=== PATIENT | female | born 1950 | race Caucasian/White ===

== ENCOUNTER 2017-01-27 09:48 | Emergency (ER) | payer MEDICARE, BC ==
[2017-01-27 11:27] VITALS: BP 140/81
--- NOTE | 2017-01-27 14:22 | UC ---
Elizabeth Altamirano Alok, scribed for Maggie Castaneda DO on 01/27/17 at 1245 . Skin Complaint HPI - HPI Summary HPI Summary: 66 y/o female presents to the with a puncture wound of the right arm yesterday. Pt states that while gardening, a stalk of grass punctured through her right forearm and is now erythematous with edema and pain radiating to her shoulder. Her garden is decorative where no animals are present. Pt states she was able to remove the foreign body and has attempted to treat wound with hydrogen pyroxide and antibiotic cream. Pt states that her pain described as a throbbing is currently at a 6 out of 10 in severity and that nothing makes her pain better/worse. Pt denies any numbness, weakness, or tingling of the upper extremities. Pt also denies any fever, chills, SOB, nausea, or cough. PMHx includes asthma, borderline HTN and anxiety/depression. PSHx includes an operation on the same extremity following a dog bite 10 years ago, as well as a shot of cortisone in the thumb of the same extremity one week ago following a slip and fall. - History of Current Complaint Chief Complaint: Wounds Time Seen by Provider: 01/27/17 10:35 Stated Complaint: ARM WOUND/RED & WARM Hx Obtained From: Patient ?: No Onset/Duration: Gradual Onset, Lasting Days, Still Present Timing: Constant Onset Severity: Moderate Current Severity: Moderate Pain Intensity: 6 Pain Scale Used: 0-10 Numeric Location: Other - Right foreare Character: Swelling, Pain, Redness, Raised Aggravating: Nothing Alleviating: Nothing Associated Signs & Symptoms: Positive: Tenderness. Negative: Nausea, Numbness, Fever, Chills, Cough, Drainage, Red Streaks, Joint Swelling Related History: Foreign Body - Allergy/Home Medications Allergies/Adverse Reactions: Allergies Allergy/AdvReac Type Severity Reaction Status Date / Time Erythromycin Allergy Rash Verified 01/27/17 11:36 Home Medications: Home Medications Albuterol HFA INHALER* [Ventolin HFA Inhaler*] 2 puff INH QID PRN 01/27/17 [ History Confirmed 01/27/17] Hydrocodone 7.5/325 0.5 tab PO PRN 01/27/17 [History] Review of Systems Constitutional: Negative Skin: Other - Puncture wound x2 right foreare. Erythematous. Painful radiating to right shoulder. Eyes: Negative ENT: Negative Respiratory: Negative Cardiovascular: Negative Gastrointestinal: Negative Genitourinary: Negative Motor: Negative Neurovascular: Negative Musculoskeletal: Negative Neurological: Negative Psychological: Negative All Other Systems Reviewed And Are Negative: Yes PMH/Surg Hx/FS Hx/Imm Hx Endocrine History Of: Reports: Dyslipidemia Denies: Diabetes, Thyroid Disease Cardiovascular History Of: Reports: Hypertension - boarderline htn Denies: Cardiac Disorders Respiratory History Of: Reports: Asthma, Bronchitis - CHRONIC Denies: COPD GI/ History Of: Reports: Gastroesophageal Reflux Denies: Ulcer Psychological History Of: Reports: Anxiety - ON MEDS, Depression - Surgical History Surgical History: Yes Surgery Procedure, Year, and Place: HYSTERECTOMY. right hand surgery after dog bite - [facility]- 10 years ago - Family History Known Family History: Positive: Cardiac Disease, Hypertension - Social History Occupation: Employed Full-time Lives: With Family - , Daughter Alcohol Use: Weekly Alcohol Amount: 2 PER WEEK Substance Use Type: None Smoking Status (MU): Never Smoked Tobacco Have You Smoked in the Last Year: No - Immunization History Most Recent Influenza Vaccination: saeson Most Recent Tetanus Shot: February 18, 2016 Physical Exam Triage Information Reviewed: Yes Appearance: Well-Appearing, No Pain Distress, Well-Nourished Vital Signs: Initial Vital Signs Temp 98.9 F 01/27/17 11:18 Pulse 75 01/27/17 11:18 Resp 18 01/27/17 11:18 BP 140/81 01/27/17 11:18 Pulse Ox 96 01/27/17 11:18 Vital Signs Reviewed: Yes Eyes: Positive: Conjunctiva Clear. Negative: Discharge ENT: Positive: Hearing grossly normal. Negative: Muffled/hoarse voice Neck exam: Normal Neck: Positive: Supple Respiratory: Positive: Lungs clear, Normal breath sounds, No respiratory distress, No accessory muscle use Cardiovascular: Positive: RRR, No Murmur Musculoskeletal Exam: Normal Neurological: Positive: Alert, Muscle Tone Normal Psychological Exam: Normal Psychological: Positive: Age Appropriate Behavior Skin Exam: Other - punture entry and exit wound surrounded by 10 cm by 5 cm erythematous region on right forearm. no red streaks. no lad Course/Dx - Differential Diagnoses - Skin Complaint Differential Diagnoses: Abscess, Cellulitis, Other - Diagnoses Provider Diagnoses: punture wound, wound infection Discharge - Discharge Plan Condition: Stable Disposition: HOME Prescriptions: Cephalexin CAP* [Keflex CAP*] 500 mg PO BID #20 cap Patient Education Materials: Puncture Wound (ED), Wound Infection (ED) Referrals: Katharina Gonzalez MD [Primary Care Provider] - 2 Days (Follow up in 2 days for re- evaluation. This follow up visit is important, we want to know that you are improving. If you can not get in with your PCP, return here for re-evaluation. Follow up sooner if symptoms worsen or new symptoms develop.) Additional Instructions: CEPHALEXIN: The antibiotic you've been prescribed is a member of the cephalosporin class. This type of antibiotic covers a wide variety of infections, including those of the skin, lungs, and urinary tract. It's useful for staph infections. This antibiotic is slightly similar to the penicillin family. In rare cases , a person who is allergic to penicillin will also be allergic to this medication. If you have had a severe allergic reaction to penicillin, and have not taken this antibiotic since that time, notify your doctor. Antibiotics which cover many germs ("broad spectrum" antibiotics) are more likely to cause diarrhea or "yeast" infections. Women prone to vaginal yeast problems may suffer an attack after taking this antibiotic. In infants, oral thrush (white spots "stuck" on the cheek) or yeast diaper rash may result. See your doctor if these problems occur. Call at once if you develop itching, hives , shortness of breath, or lightheadedness. ANY TIME YOU TAKE AN ANTIBIOTIC, IT IS IMPORTANT TO REPLENISH THE BODY'S BALANCE OF "GOOD" BACTERIA BY EATING HIGH QUALITY CULTURED FOOD SUCH YOGURT, SAURKRAUT OR MAHI CHI AND/OR TAKING A PROBIOTIC SUPPLEMENT. The documentation as recorded by the Elizabeth singh Alok accurately reflects the service I personally performed and the decisions made by , Maggie Castaneda DO.
== END 2017-01-27 13:12 | disposition home or self-care (01) ==
LOC: UCEAST 09:48
DX: S51.831A Puncture wound without foreign body of right forearm, initial encounter (principal); L08.9 Local infection of the skin and subcutaneous tissue, unspecified; W45.8XXA Other foreign body or object entering through skin, initial encounter; Y93.9 Activity, unspecified; Y99.9 Unspecified external cause status; F41.8 Other specified anxiety disorders; E78.5 Hyperlipidemia, unspecified; R03.0 Elevated blood-pressure reading, without diagnosis of hypertension; J45.909 Unspecified asthma, uncomplicated; J42 Unspecified chronic bronchitis; Z88.1 Allergy status to other antibiotic agents
CPT/HCPCS: 99212; G0463

== ENCOUNTER 2018-07-10 14:16 | Observation (INO) | payer MEDICARE, BC ==
--- OUTSIDE RECORDS SUMMARY | 2018-07-10 15:15 | XMS REPORT | Continuity of Care Document ---
:1950 External Reference #:[id number] Author Name Jim Carreon, OD Address [address] [place] [address] Care Team Providers Name Role Phone Katharina Gonzalez MD Care Team Information Magento Web Developer Unavailable Carlos FERRER, Katharina Primary Care Physician Unavailable Payers Type Date Identification Numbers Payment Provider Subscriber Policy Number: [id number] Medicare [place] Szymanski PayID: [id number] [address] [place] [address] Policy Number: [id number] / CN [place] Queta Szymanski PayID: [id number] [address] [address] [place] [address] Advance Directives Description No Information Available Problems Date Description Provider Status Onset: 03/06/2015 Essential hypertension Diony Coe M.D. Active Onset: 09/06/2016 Contusion of eyeball and orbital Diony Coe M.D. Active tissues, left eye, subsequent encounter Onset: 03/06/2016 Tear film insufficiency Jim Cabrales O.D. Active Onset: 02/08/2016 Presence of intraocular lens Jim Cabrales O.D. Active Onset: 01/24/2016 Convalescence after surgery Diony Coe M.D. Active Onset: 03/06/2015 Vitreous degeneration Diony Coe M.D. Active Onset: 03/06/2015 Nuclear senile cataract Diony Coe M.D. Active Family History Date Family Member(s) Problem(s) Comments Father Heart Disease Father H/O: Hypertension Social History Type Date Description Comments Sex Unknown ETOH Use Occasionally consumes alcohol Tobacco Use Start: Unknown End: Unknown Patient is a former smoker Smoking Status Reviewed: 06/29/18 Patient is a former smoker Allergies, Adverse Reactions, Alerts Date Description Reaction Status Severity Comments 03/23/2018 Xiidra Active 03/06/2015 NKDA Inactive Medications Medication Date Status Form Strength Qnty SIG Indications Ordering Provider Fluorometholone 03/23/ Active Suspension 0.1% 10ml 1g2017 qd OU Lauri, OD Amlodipine 00/ Active Tablets 5mg Unknown Besylate 0000 Hydrocodone-Aceta / Active Tablets 7.5-325mg Unknown minophen 0000 Prozac / Active Capsules 80mg Unknown 0000 Wellbutrin XL / Active Tablets ER 150mg Unknown 0000 24HR Alprazolam / Active Tablets 0.5mg Unknown 0000 Atorvastatin / Active Tablets 10mg Unknown Calcium 0000 Losartan / Active Tablets 100-25mg Unknown Potassium/Hydroch 0000 lorothiazide Ventolin HFA / Active Aerosol 108(90Base Unknown 0000 ) mcg/Act Lansoprazole / Active Capsules DR 30mg Unknown 0000 Dulera / Active Aerosol 100-5mcg/A [address] twice a day Xiidra 02/27/ Hx Solution 5% 60unit 1g Jim 2017 - s both Carreon, 03/23/ eyes OD 2018 twice a day Fluorometholone 12/18/ [facility] OS Lauri, 02/27/ x 1 OD 2018 week, then tid x 1 week Tobramycin-Dexame 12/12/ Hx Suspension 0.3-0.1% 5ml 1 drop Jim day 2018 - tid Ou Lauri, 12/18/ x 1 OD 2018 week Vigamox 01/10/ Hx Solution 0.5% 3ml 1 drop Diony 2016 - drops Saravanan, 02/05/ right M.D. 2016 eye four times a day Ketorolac 01/10/ Hx Solution 0.5% 10ml 1 Diony Tromethamine 2015 - drops Saravanan, 03/06/ right M.D. 2016 eye twice a day Pred Forte 01/10/ Hx Suspension 1% 10ml 1 Diony 2016 - drops Saravanan, 03/06/ right M.D. 2016 eye four times a day Immunizations Description No Information Available Vital Signs Date Vital Result Comment 06/29/2018 12:23pm Intraocular Pressure Right Eye 17 mmHg Intraocular Pressure Left Eye 17 mmHg 03/23/2018 9:22am Intraocular Pressure Right Eye 16 mmHg Intraocular Pressure Left Eye 16 mmHg 02/27/2018 8:32am Intraocular Pressure Right Eye 17 mmHg Intraocular Pressure Left Eye 17 mmHg 01/28/2018 10:10am Intraocular Pressure Right Eye 15 mmHg Intraocular Pressure Left Eye 15 mmHg 12/25/2017 9:45am Intraocular Pressure Right Eye 15 mmHg Intraocular Pressure Left Eye 15 mmHg 12/18/2017 9:13am Intraocular Pressure Right Eye 16 mmHg Intraocular Pressure Left Eye 16 mmHg 12/12/2017 11:18am Intraocular Pressure Right Eye 16 mmHg Intraocular Pressure Left Eye 16 mmHg 09/06/2016 8:17am Intraocular Pressure Right Eye 17 mmHg Intraocular Pressure Left Eye 17 mmHg 03/06/2016 8:56am Intraocular Pressure Right Eye 12 mmHg Intraocular Pressure Left Eye 12 mmHg 01/31/2016 8:28am Intraocular Pressure Right Eye 17 mmHg Intraocular Pressure Left Eye 17 mmHg 01/24/2016 9:34am Intraocular Pressure Right Eye 16 mmHg Intraocular Pressure Left Eye 17 mmHg 01/11/2016 10:35am Intraocular Pressure Right Eye 16 mmHg Intraocular Pressure Left Eye 17 mmHg 03/06/2015 8:51am Intraocular Pressure Right Eye 16 mmHg Intraocular Pressure Left Eye 17 mmHg Results Description No Information Available Procedures Date Code Description Status 12/12/2017 11171 Eye Exam Est Intermediate Completed 09/06/2016 55849 Ophthalmoscopy Subsequent Completed 09/06/2016 91467 Eye Exam Est Comprehensive Completed 08/23/2016 00240 Ophthalmoscopy Subsequent Completed 08/23/2016 43718 Eye Exam Est Intermediate Completed 01/30/2016 36544 Extracapsular Cataract Extraction W/Intraocular Lens Completed 01/23/2016 58059 Extracapsular Cataract Extraction W/Intraocular Lens Completed 01/11/2016 99439 Ophthalmic Biometry By Partial Coherence Interferometry Completed W/Intra 01/11/2016 15348 Eye Exam Est Intermediate Completed 03/06/2015 27053 Ophthalmoscopy Initial Completed 03/06/2015 71163 Refraction Completed 03/06/2015 43510 Eye Exam Est Comprehensive Completed 01/01/2012 30351 Ophthalmoscopy Subsequent Completed 01/01/2012 40445 Eye Exam Est Intermediate Completed 12/12/2011 74815 Ophthalmoscopy Initial Completed 12/12/2011 32318 Eye Exam New Comprehensive Completed Encounters Type Date Location Provider Dx Diagnosis Office Visit 06/29/2018 Main Office Jim Carreon, OD H04.123 Dry eye syndrome of 11:30a bilateral lacrimal glands Office Visit 03/23/2018 Main Office Jim Carreon, OD H04.123 Dry eye syndrome of 9:15a bilateral lacrimal glands 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, left eye Office Visit 02/27/2018 8:15a Main Office Jim Carreon, H04.123 Dry eye syndrome of OD bilateral lacrimal glands Office Visit 01/28/2018 9:45a Main Office Jim Carreon, H16.223 Keratoconjunct sicca, OD not specified as Sjogren's, bilateral Office Visit 12/25/2017 8:30a Main Office Jim Carreon, H04.123 Dry eye syndrome of OD bilateral lacrimal glands 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
--- NOTE | 2018-07-10 15:18 | ED ---
Allergic Reaction/Systemic - HPI Summary HPI Summary: A 67 y/o F presents to ED by car with c/o throat closing which mostly resolved onset RECONCILEMENT CLERK Per her daughter, that after lunch, her mother was suddenly red in the face and giving the choking sign. The pt tried to use her inhaler but it was coming it out from her cheeks, so they called 911. Eventually, she was able to get some into her lungs. They did not use the epi-pen RECONCILEMENT CLERK. EMS arrived on scene and they gave her Benadryl. Associated sx: hoarseness, difficulty breathing. 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 PMHx: borderline HTN. Sees Dr. Gonzalez, PCP. - History of Current Complaint Chief Complaint: EDAllergicReaction Time Seen by Provider: 07/10/18 15:16 Hx Obtained From: Patient, Family/Zigzagger - daughter Onset/Duration: Sudden Onset, Started hours ago, Still Present - milder Timing: Constant Severity Initially: Severe Severity Currently: Mild Pain Intensity: 3 Pain Scale Used: 0-10 Numeric Location: Discrete @ - throat Associated Signs And Symptoms: Positive: Difficulty Breathing, Hoarseness, Throat Tightening - Allergies/Home Medications Allergies/Adverse Reactions: Allergies Allergy/AdvReac Type Severity Reaction Status Date / Time erythromycin base Allergy Rash Verified 07/10/18 14:46 mold Allergy Shortness Verified 07/10/18 17:35 of Breath pollen extracts Allergy Shortness Verified 07/10/18 17:35 of Breath soy Allergy GI Upset Verified 07/10/18 14:46 tree and shrub pollen Allergy Shortness Verified 07/10/18 17:35 of Breath cats Allergy Difficulty Uncoded 07/10/18 14:46 Breathing Home Medications: Home Medications Fluoxetine HCl [Prozac] 80 mg PO DAILY 07/10/18 [History Confirmed 07/10/18] Lisdexamfetamine Dimesylate [Vyvanse] 50 mg PO DAILY 07/10/18 [History Confirmed 07/10/18] Montelukast Sodium TAB* [Singulair TAB*] 10 mg PO DAILY 07/10/18 [History Confirmed 07/10/18] PMH/Surg Hx/FS Hx/Imm Hx Previously Healthy: No Endocrine/Hematology History: Denies: Hx Diabetes, Hx Thyroid Disease Cardiovascular History: Reports: Hx Hypertension - boarderline htn Denies: Other Cardiovascular Problems/Disorders Respiratory History: Reports: Hx Asthma Denies: Hx Chronic Obstructive Pulmonary Disease (COPD) GI History: Reports: Hx Gastroesophageal Reflux Disease, Hx Hiatal Hernia Denies: Hx Ulcer, Other GI Disorders Musculoskeletal History: Reports: Hx Arthritis - MOST JOINTS ALL OVER, Hx Tendonitis Denies: Other Musculoskeletal History Sensory History: Reports: Hx Cataracts - KEMI, Hx Contacts or Glasses - GLASSES Denies: Hx Hearing Aid Opthamlomology History: Reports: Hx Cataracts - KEMI, Hx Contacts or Glasses - GLASSES Neurological History: Denies: Other Neuro Impairments/Disorders Psychiatric History: Reports: Hx Anxiety - ON MEDS, Hx Depression - Surgical History Surgery Procedure, Year, and Place: HYSTERECTOMY. right hand surgery after dog bite - [facility]- 10 years ago Hx Anesthesia Reactions: Yes - EASILY WAKES UP DURING SURGERY Infectious Disease History: No Infectious Disease History: Reports: Hx Shingles - "a few times." Denies: Hx Clostridium Difficile, Hx Hepatitis, Hx Human Immunodeficiency Virus (HIV), Hx of Known/Suspected MRSA, Hx Tuberculosis, Hx Known/Suspected VRE , Hx Known/Suspected VRSA, History Other Infectious Disease, Traveled Outside the [place] in Last 30 Days - Family History Known Family History: Positive: Cardiac Disease, Hypertension - Social History Occupation: Employed Full-time Lives: With Family Alcohol Use: Weekly Alcohol Amount: 2 PER WEEK Hx Substance Use: No Substance Use Type: Reports: None Hx Tobacco Use: No Smoking Status (MU): Never Smoked Tobacco Have You Smoked in the Last Year: No Review of Systems Negative: Fever, Chills Negative: Erythema Positive: Other - pos: throat tightening, hoarseness. Negative: Sore Throat Negative: Chest Pain Positive: Other - pos: dyspnea. Negative: Shortness Of Breath, Cough Negative: Abdominal Pain, Vomiting, Nausea Negative: dysuria, hematuria Negative: Myalgia, Edema Negative: Rash Neurological: Other - neg: dizziness All Other Systems Reviewed And Are Negative: Yes Physical Exam - Summary Physical Exam Summary: Constitutional: Well-developed, Well-nourished, Alert. (-) Distressed. Increased hoarseness. Skin: Warm, Dry HENT: Normocephalic; Atraumatic. Increased hoarseness. Eyes: Conjunctiva normal Neck: Musculoskeletal ROM normal neck. (-) JVD, (-) Stridor, (-) Tracheal deviation Cardio: Rhythm regular, rate normal, Heart sounds normal; Intact distal pulses; The pedal pulses are 2+ and symmetric. Radial pulses are 2+ and symmetric. (-) Murmur Pulmonary/Chest wall: Effort normal. (-) Respiratory distress, (-) Wheezes, (-) Rales Abd: Soft, (-) epigastric tenderness, (-) Distension, (-) Guarding, (-) Rebound Musculoskeletal: (-) Edema Lymph: (-) Cervical adenopathy Neuro: Alert, Oriented x3 Psych: Mood and affect Normal Triage Information Reviewed: Yes Vital Signs On Initial Exam: Initial Vitals Temp Pulse Resp BP Pulse Ox 97.7 F 73 19 135/76 96 07/10/18 14:46 07/10/18 14:46 07/10/18 14:46 07/10/18 14:46 07/10/18 14:46 Vital Signs Reviewed: Yes Diagnostics - Vital Signs Vital Signs Temp Pulse Resp BP Pulse Ox 07/10/18 14:46 97.7 F 73 19 135/76 96 - Laboratory Result Diagrams: 07/10/18 16:35 07/10/18 16:35 Lab Statement: Any lab studies that have been ordered have been reviewed, and results considered in the medical decision making process. Allergic Reaction Course/Dx - Diagnoses Provider Diagnoses: Acute anaphylaxis - Provider Notifications Discussed Care Of Patient With: Mckay Soto - hospitalist Time Discussed With Above Provider: 16:52 Instructed by Provider To: Other - Will admit. Also discussed with zainab Martinezist PA. Discharge - Sign-Out/Discharge Documenting (check all that apply): Patient Departure - ADM - Discharge Plan Disposition: ADMITTED TO [facility] - Attestation Statements Document Initiated by Scribe: Yes Documenting Scribe: Traci Graham Provider For Whom Scribe is Documenting (Include Credential): Dr. Jose Miguel German Scribe Attestation: I, Traci Graham, scribed for Dr. Jose Miguel German on 07/10/18 at 1904.
[2018-07-10] MEDS ORDERED: diPHENhydraMINE IV* 50 MG/ML 1 ml VIAL (BENADRYL) SLOW PUSH ONE (16:28)
[2018-07-10] MEDS ORDERED: methylPREDNISolone 125 MG* 2 ML VIAL IV ONE (16:28)
[2018-07-10] MEDS ORDERED: Famotidine IV* 10 MG/ML 2 ML (20 mg) IV SLOW PU ONE (16:28)
[2018-07-10] MEDS ORDERED: NS 0.9% 1000 ML* 1,000 ML IV ONE (16:29)
[2018-07-10 16:45] LABS: Hematocrit 38 % (35-47); Hemoglobin 13.3 g/dl (12.0-16.0); Mean Corpuscular HGB Conc 35 g/dl (31-36); Mean Corpuscular Hemoglobin 33 pg (27-31); Mean Corpuscular Volume 97 fL (80-97); Mean Platelet Volume 6.6 um3 (7.4-10.4); Platelet Count 287 10^3/ul (150-450); Red Blood Count 3.97 10^6/ul (4.00-5.40); Red Cell Distribution Width 14 % (10.5-15); White Blood Count 6.8 10^3/ul (3.5-10.8)
[2018-07-10 17:04] LABS: EGFR Non-African American 109.6 (>60)
[2018-07-10] MEDS ORDERED: Acetaminophen TAB* 325 MG PO PRN (17:18)
[2018-07-10] MEDS ORDERED: Albuterol 2.5 MG/3 ML NEB.SOL* (0.083%) INH PRN (17:18)
[2018-07-10] MEDS ORDERED: Ondansetron INJ* 2 MG/ML VIAL IV PRN (17:18)
[2018-07-10] MEDS ORDERED: Al Hydrox/Mg Hydrox/Simet LIQ* 30 ML UDC PO PRN (17:18)
[2018-07-10] MEDS ORDERED: diPHENhydraMINE PO* 25 MG PO PRN (17:24)
[2018-07-10] MEDS ORDERED: NS 0.9% 1000 ML* 1,000 ML IV SCH (17:30)
[2018-07-10] MEDS ORDERED: diPHENhydraMINE IV* 50 MG/ML 1 ml VIAL (BENADRYL) IV PRN (17:44)
[2018-07-10] MEDS ORDERED: Simethicone TAB* 80 MG TAB.CHEW PO PRN (17:49)
[2018-07-10] MEDS ORDERED: Hydrochlorothiazide TAB* 25 MG PO SCH (18:00)
[2018-07-10] MEDS ORDERED: Losartan TAB* 25 MG PO SCH (18:00)
[2018-07-10] MEDS ORDERED: Enoxaparin(*) 40 MG/0.4 ML SYR SUBCUT SCH (18:00)
[2018-07-10] MEDS: Mometasone/Formoter 100/5 MDI INH SCH (20:02)
--- NOTE | 2018-07-10 22:51 | HP ---
CC: Dr. Katharina Gonzalez * HISTORY AND PHYSICAL: DATE OF ADMISSION: 07/10/18 PRIMARY CARE PROVIDER: Dr. Katharina Gonzalez. ATTENDING PHYSICIAN: Dr. Mckay Soto * (dictated by Michelle Sandoval NP). CHIEF COMPLAINT: Allergic reaction. HISTORY OF PRESENT ILLNESS: Ms. Szymanski is a 67-year-old female with a past medical history of hypertension, asthma, anxiety, depression, who presented to the emergency room today with complaints of an allergic reaction. She reports that she was in her normal state of health this morning. She was at work, eating lunch, which consisted of Nepali fried rice with chicken and vegetables. During her lunch, she also hugged a coworker, who has cats. She reports that her throat then began to close. She felt as though she could not breathe. She thinks this went on for about 1 minute. This episode was witnessed by her daughter, who reports that her face was red during the incident and that she was getting very little air and she attempted to use her albuterol inhaler, but was not able to actually inhale the medication. EMS was called. Upon EMS arrival, the patient had just taken 50 mg of Benadryl and declined to have EMS bring her to the emergency room. She instead had her daughter drive her to the emergency room. During the car ride here, she did feel as though her throat was closing again, although she was still able to breathe at that point. Additionally, again in the waiting room, she felt as though her throat was closing, although not to be extent that it had been earlier during lunch. She does have a significant number of asthma triggers. She states that she has had 2 prior episodes similar to this, where she felt as though she felt like her throat was closing and was not able to breathe, the last one being about a year and a half ago. While in the emergency room, the patient was given Benadryl, famotidine, Solu- Medrol, and IV fluids. She did have some difficulty swallowing initially though this is now improved. She does continue to report a sore throat and a raspy voice. Because of the concern for a biphasic reaction, the hospitalist team was asked to evaluate for admission. PAST MEDICAL HISTORY: 1. Asthma. 2. Hypertension. 3. Anxiety. 4. Depression. 5. Shingles. PAST SURGICAL HISTORY: 1. Hysterectomy. 2. Right hand surgery. 3. Sinus surgery. HOME MEDICATIONS: 1. Vyvanse 50 mg p.o. daily. 2. Singulair 10 mg p.o. daily. 3. Fluoxetine 80 mg p.o. daily. 4. Albuterol MDI 2 puffs four times a day p.r.n. 5. Acyclovir 200 mg p.o. b.i.d. p.r.n. 6. Folic acid 400 mcg p.o. daily. 7. Vitamin D 2000 units p.o. daily. 8. Lipitor 10 mg p.o. daily. 9. Aspirin 325 mg p.o. daily. 10. Dulera 100/5 two puffs b.i.d. 11. Losartan/hydrochlorothiazide 100/25 one tab p.o. daily. 12. Lansoprazole 30 mg p.o. b.i.d. 13. Bupropion 300 mg p.o. daily. 14. Amlodipine 2.5 mg p.o. daily. ALLERGIES: ERYTHROMYCIN, MOLD, POLLEN, SOY, TREES, and CATS. FAMILY HISTORY: Mother at age 65 of a cerebral hemorrhage. Father at age 60 due to an CO. SOCIAL HISTORY: Denies any tobacco or recreational drug use. Reports 1 glass of wine per day. 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 She is and lives at home with her . The patient's daughter, Ritu, will be her surrogate decision in the event she is unable to make her own decisions. REVIEW OF SYSTEMS: An 11-point review of systems was performed and all the pertinent positive and negative findings are in the HPI. All other systems are negative. PHYSICAL EXAMINATION GENERAL: Ms. Szymanski is a well-developed, well-nourished, overweight, white woman sitting in bed, in no acute distress. She appears her stated age. VITAL SIGNS: Temp 97.7, heart rate 64, respiratory rate 19, oxygen saturation 97% on 2 L nasal cannula, blood pressure 135/75. HEENT: Visual rose are grossly intact. Pupils are equal, round, and reactive to light and accommodation. Extraocular movements intact. Sclerae without icterus. Hearing is grossly intact. Oral mucous membranes are moist and without lesions. Pharynx is clear. NECK: Full range of motion. Thyroid not palpable. Trachea midline. No lymphadenopathy. RESPIRATORY: Symmetrical chest expansion. No chest wall deformities. Lungs are clear to auscultation throughout. No rhonchi, wheezes, or rubs. No accessory muscle use. CARDIOVASCULAR: Regular rate and rhythm. S1, S2 present. No murmurs, rubs, or gallops. No JVD. ABDOMEN: Soft, nontender to palpation. Bowel sounds normoactive active throughout. No bruits appreciated. No hepatosplenomegaly. EXTREMITIES: Skin is warm and smooth bilaterally. No edema. No clubbing or cyanosis. Pedal pulses 2+ bilaterally. MUSCULOSKELETAL: Full range of motion. No pain or deformities. NEURO: Awake, alert, and oriented x4. Cranial nerves II through XII grossly intact. Moves all extremities. SKIN: Grossly intact without lesions. LABORATORY DATA: WBC 6.8, RBC 3.97, hemoglobin 13.3, hematocrit 38, and platelets 287. Sodium 132, potassium 3.6, chloride 102, carbon dioxide 26, BUN 13, creatinine 0.55, glucose 117. ASSESSMENT AND PLAN: Ms. Szymanski is a 67-year-old female with a past medical history of asthma, hypertension, anxiety, and depression, who presented to the emergency room today with complaints of an allergic reaction. The patient will be admitted to the medical floor, observation for: 1. Allergic reaction. There is concern for a biphasic reaction, so she will be monitored overnight. The patient is stable at this time and is not displaying any significant symptoms, so I am not concerned about her losing her airway. I will order Benadryl as needed and Solu-Medrol 40 mg IV q.8 hours. I will also order her 1 L of fluid. She will be monitored on telemetry overnight. 2. Asthma. She can have albuterol nebulizers as needed. She can continue her Dulera and Singulair. 3. Hypertension. She is normotensive at this point. She can continue her amlodipine, hydrochlorothiazide, losartan. 4. Anxiety and depression. She can continue her bupropion and fluoxetine. 5. Fluids, electrolytes, and nutrition. As I noted above, the patient will get 1 L of normal saline in addition to what she received in the emergency room. She can have a regular diet. 6. Code status. The patient will be a full code. 7. DVT prophylaxis. Based on the DVT risk assessment, the patient scores a 3 making her high risk. I have placed her on Lovenox. TIME SPENT: Approximately 50 minutes was spent on this admission, greater than half of that time spent with the patient and her daughter obtaining my history, performing my physical examination, and reviewing the plan of care. The case has been reviewed with my attending, Dr. Soto, who is in agreement with the plan of care. MICHELLE SANDOVAL, LICENSED MARINE ENGINEER [id number]/CPS #: [id number] RUT
[2018-07-10] MEDS: Omeprazole CAP* 20 MG PO SCH (23:38)
[2018-07-11] MEDS: methylPREDNISolone SOD 40 MG* 1 ML VIAL IV SCH ×3 (03:51→08:17)
[2018-07-11 06:55] LABS: ABS Basophils 0 10^3/ul (0-0.2); ABS Eosinophils 0 10^3/ul (0-0.6); ABS Lymphocytes 0.4 10^3/ul (1.0-4.8); ABS Monocytes 0 10^3/ul (0-0.8); ABS Neutrophils 4.8 10^3/ul (1.5-7.7); ABS Nucleated RBC 0 10^3/ul; Eosinophil % 0 % (0-6); Hematocrit 37 % (35-47); Hemoglobin 12.8 g/dl (12.0-16.0); Lymphocyte % 8.4 % (25-47); Mean Corpuscular HGB Conc 35 g/dl (31-36); Mean Corpuscular Hemoglobin 34 pg (27-31); Mean Corpuscular Volume 97 fL (80-97); Mean Platelet Volume 7.1 um3 (7.4-10.4); Nucleated Red Blood Cells % 0; Platelet Count 286 10^3/ul (150-450); Red Cell Distribution Width 13 % (10.5-15); White Blood Count 5.3 10^3/ul (3.5-10.8)
[2018-07-11 07:05] LABS: EGFR Non-African American 141.8 (>60)
[2018-07-11] MEDS: Mometasone/Formoter 100/5 MDI INH SCH (07:33)
[2018-07-11 07:36] VITALS: BP 139/72
[2018-07-11] MEDS: Omeprazole CAP* 20 MG PO SCH (08:10)
[2018-07-11] MEDS ORDERED: FLUoxetine CAP* 20 MG PO SCH (09:00)
[2018-07-11] MEDS ORDERED: buPROPion SR TAB.SR* 150 MG PO SCH (09:00)
[2018-07-11] MEDS ORDERED: amLODIPine TAB* 5 MG PO SCH (09:00)
[2018-07-11] MEDS ORDERED: Cholecalciferol TAB* 1000 UNITS PO SCH (09:00)
[2018-07-11] MEDS ORDERED: Aspirin TAB* 325 MG PO SCH (09:00)
[2018-07-11] MEDS ORDERED: Montelukast Sodium TAB* 10 MG PO SCH (09:00)
[2018-07-11] MEDS ORDERED: Folic Acid TAB* 1 MG PO SCH (09:00)
--- NOTE | 2018-07-11 12:55 | DCNOTE ---
Discharge Progress Note Primary Diagnosis: anaphylaxis, related to cat hair, food Secondary Diagnoses: asthma, allergic type Hypertension anxiety depression h/o meghan Consultants: none Procedures: none Complications: none Pertinent Lab/Radiology testing: Laboratory Tests 07/10/18 07/11/18 07/11/18 16:35 06:30 06:30 WBC 5.3 Hgb 12.8 Plt Count 286 Sodium 132 L 137 Glucose 145 H Tests pending upon discharge: none Physical exam: Selected Entries 07/11/18 07:22 Temperature 36.8 C Pulse Rate 63 Respiratory 18 Rate Blood Pressure 139/72 (mmHg) O2 Sat by Pulse 95 Oximetry No acute distress Trachea midline, no stridor Lungs: clear Heart; RRR, no murmur
[2018-07-11] MEDS ORDERED: Atorvastatin* 10 MG TAB PO SCH (17:00)
--- NOTE | 2018-07-12 06:22 | DS ---
CC: Dr. Gonzalez; Dr. Ramos Miranda * DISCHARGE SUMMARY: DATE OF ADMISSION: 07/10/18 DATE OF DISCHARGE: 07/11/18 PRIMARY DIAGNOSES: Anaphylaxis potentially related to cat hair or food. SECONDARY DIAGNOSES: 1. Asthma, allergic type with acute exacerbation. 2. Hypertension. 3. Anxiety. 4. Depression. 5. History of shingles. MEDICATIONS ON DISCHARGE: 1. Acyclovir 400 mg p.o. b.i.d. 2. Albuterol inhaler 2 puffs 4 times a day p.r.n. wheezing. 3. Norvasc 2.5 mg p.o. daily. 4. Aspirin 325 mg p.o. daily. 5. Lipitor 10 mg p.o. q.h.s. 6. Wellbutrin SR 300 mg p.o. q.a.m. 7. Vitamin D 2000 IU daily. 8. Prozac 80 mg p.o. daily. 9. Folic acid 400 mcg p.o. daily. 10. Prevacid 30 mg p.o. b.i.d. 11. Lisdexamfetamine 50 mg p.o. daily. 12. Losartan/HCTZ 100/25 one tab p.o. q.a.m. 13. Mometasone/formoterol 100/5 two inhalations b.i.d. 14. Montelukast 10 mg p.o. daily. 15. Albuterol nebulizer as needed. 16. Benadryl as needed. 17. Medrol Dosepak tapered as directed, which is the only new medications on this hospital stay. 18. EpiPen subcu as directed. HOSPITAL COURSE: The patient was admitted from her work place where she had an acute episode of wheezing and a sensation of throat closing without any tongue or lip swelling or hypertension. She was treated with Benadryl and fluids and did not receive epinephrine in the field or in the ER. She was observed overnight, given the concern of anaphylaxis. She was given IV Solu-Medrol in the ER and this was continued as inpatient. The patient's symptoms largely resolved and she felt safe to go home next day. She is advised to followup with her primary care doctor as well with Dr. Ramos [facility] to discuss whether this is an acute asthma attack versus anaphylaxis. She does have an EpiPen at home. DISPOSITION: Home. ACTIVITY: As tolerated. DIET: Low salt. She is to see her primary care doctor within a week. [id number]/CPS #: [id number] RUT
== END 2018-07-11 14:00 | disposition home or self-care (01) ==
LOC: ED 14:16 → MED 17:42
PROVIDERS: ADMIT Internal Medicine; ATTEND Internal Medicine
DX: T78.2XXA Anaphylactic shock, unspecified, initial encounter (principal); X58.XXXA Exposure to other specified factors, initial encounter; J45.909 Unspecified asthma, uncomplicated; I10 Essential (primary) hypertension; F41.9 Anxiety disorder, unspecified; F32.9 Major depressive disorder, single episode, unspecified; Z79.899 Other long term (current) drug therapy; Z88.1 Allergy status to other antibiotic agents
CPT/HCPCS: 36415; 80048; 80053; 85025; 85027; 94640; 96372; 96374; 96375; 96376; 99283; A9270-GY; G0378; J1200; J1650; J2920; J2930

== ENCOUNTER 2019-04-16 14:17 | Emergency (ER) | payer MEDICARE, BC ==
--- OUTSIDE RECORDS SUMMARY | 2019-04-16 14:47 | XMS REPORT | Continuity of Care Document ---
:1950 External Reference #:[id number] Author Name WalkerKyawRahel Care Team Providers Name Role Phone Katharina Gonzalez MD Primary Care Physician Unavailable Payers Date Identification Numbers Payment Provider Subscriber Effective: 2013 Policy Number: [id number] Medicare Queta Szymanski PayID: [id number] [address] [place] [address] Effective: 2015 Policy Number: [id number] BS [employer]ets Queta Szymanski PayID: [id number] [address] [place] [address] Effective: 2010 Policy Number: [id number] BS Of [facility] Queta Szymanski Expires: 2011 Group Number: [id number] [address] PayID: [id number] [place] [address] Problems Active Problems Provider Date Dyspnea Pop Nowak M.D. Onset: 02/10/2012 Benign essential hypertension Pop Nowak M.D. Onset: 02/10/2012 Hyperlipidemia Pop Nowak M.D. Onset: 02/10/2012 Mitral valve disorder Pop Nowak M.D. Onset: 02/10/2012 Electrocardiogram abnormal Pop Nowak M.D. Onset: 02/10/2012 Chest pain Pop Nowak M.D. Onset: 12/06/2013 Chronic pain syndrome Marcus Braxton M.D. Onset: 04/03/2015 Sjogren's syndrome Marcus Braxton M.D. Onset: 04/03/2015 Degenerative joint disease involving Marcus Braxton M.D. Onset: 04/03/2015 multiple joints Essential hypertension Pop Nowak M.D. Onset: 08/16/2015 Shoulder joint pain Rick Saravia MD Onset: 04/06/2019 Full thickness rotator cuff tear Rick Saravia MD Onset: 03/11/2019 Family History Date Family Member(s) Observation Comments General Heart Disease General Hypertension General Stroke General Rheumatoid Arthritis : (age 62 Father due to SD first SD at age 61 Years) : (age 65 Mother due to Cerebral hemorrhage Years) Siblings 2 Social History Type Date Description Comments Sex Unknown Marital Status Lives With Spouse Occupation Head Mistress ETOH Use Occasionally consumes alcohol Tobacco Use Start: Unknown Patient has never smoked Recreational Drug Use Denies Drug Use Smoking Status Reviewed: 04/06/19 Patient has never smoked Exercise Type/Frequency Exercises regularly Allergies, Adverse Reactions, Alerts Active Allergies Reaction Severity Comments Date Erythromycin rash 02/26/2007 Lyrica facial swelling Severe 04/03/2015 Cymbalta bowels seized up Moderate 04/03/2015 Bactrim shortness of breath/hives 01/19/2019 Medications Active Medications SIG Qnty Indications Ordering Date Provider Lipitor 1 po qhs 90tabs Arleeneh S. 08/23/2009 10mg Tablets Geremias Nowak Aspirin 1 PO qd Pop S. 06/26/2007 325mg Tablets Geremias Nowak Singulair One qd At hs 30tabs Edvinybsarahi S. 02/19/2007 10mg Tablets Geremias Nowak Benzonatate Take One Capsule Unknown 100mg Capsules By Mouth Three Times A Day as Needed For 10 Days Breo Ellipta Inhale 1 puff By Unknown 200-25mcg/Inh Mouth Daily Aerosol Rinse Mouth After Use Folic Acid 1 tablet by mouth Unknown 400mcg Tablets daily Valtrex 1 by mouth every Unknown 500mg Tablets day Ventolin HFA 2 puffs by mouth Unknown 108(90Base) four times a day mcg/Act Aerosol as needed Losartan 1 by mouth every Unknown Potassium/Hydrochloroth day iazide 100-25mg Tablets Albuterol Sulfate 1 vial via Unknown nebulizer 4 times (2.5mg/3ML) 0.083% daily as needed Nebulizer Levocetirizine 1 by mouth every Unknown Dihydrochloride day in the 5mg Tablets evening Dulara 2 puffs twice Other Ordering daily Provider Wellbutrin XL 1 by mouth daily Unknown 300mg Tablets ER 24HR Prozac 2 by mouth every Unknown 40mg Capsules day Prevacid 2 tabs daily Unknown 30mg Capsules DR Amlodipine Besylate 1 po qd 30tabs Unknown 5mg Tablets Vit D qd Unknown 2000U History Medications Ropinirole HCL 1 an hour before 60tabs 338.4 Marcus Braxton, 04/03/2015 - 0.25mg at bedtime x 1 M.D. 08/15/2015 Tablets week, then 1 bid Advair Diskus 1 puff po bid 60units Other Ordering 10/20/2013 - Provider 08/15/2015 250-50mcg/Dose Aerosol Percocet 1/2 to [address] Bob M.D. 09/06/2013 - 5-325mg prn pain (not 10/25/2015 Tablets taking) Wellbutrin SR 2 po qam, [facility] 08/23/2009 - 150mg the afternoon Geremias Nowak 08/15/2015 Tablets ER 12HR Hydrocodone 1-2 tabs prn Pop S. 08/23/2009 - 500mg Geremias Nowak 01/04/2011 Prozac 2 PO qd 30caps Pop S. 01/13/2008 - 30mg Capsules Geremias Nowak 02/10/2012 Nasonex 2 Sprays Both Floritaybsarahi S. 01/13/2008 - 50mcg/Act Nostrils prn Geremias Nowka 08/23/2009 Suspension Folic Acid 1N PO qd Pop S. 06/26/2007 - 400mcg Geremias Nowak 04/07/2017 Tablets Alprazolam one qd prn Pop STahir 02/26/2007 - 0.5mg Geremias Nowak 10/25/2015 Tablets Dexedrine one qd Pop STahir 02/26/2007 - 10mg Caps Geremias Nowak 02/10/2012 ER 24HR Lexapro 1 PO qd Floritamane S. 02/26/2007 - 20mg Tablets Geremias Nowak 01/13/2008 Wellbutrin XL 2 in am 1 at 1200 Pop S. 02/26/2007 - 150mg Geremias Nowak 08/23/2009 Tablets ER 24HR Valtrex one bid Pop STahir 02/26/2007 - 500mg Tablets Geremias Nowak 06/26/2007 Nasonex 2 sprays both tasarahi S. 02/19/2007 - 50mcg/Act nostrils qd Geremias Nowak 01/13/2008 Suspension Prevacid 1 PO qd Pop S. 02/19/2007 - 30mg Geremias Nowak 02/10/[address] Tamayo 1 tablet po q 6 Qutaybsarahi S. 02/19/2007 - 800mg hrs prn Geremias Nowak 02/26/2007 Tablets Gabapentin 1 po qd Floritamane S. 02/19/2007 - 300mg Geremias Nowak 02/26/2007 Tablets Vicodin 1-2 Tablets Q4H 40tabs Floritamane S. 02/19/2007 - 7.5mg/325mg prasha Nowak M.D. 02/26/2007 Tablets Pravachol 1 Tablet PO QHS 30tabs Pop S. 02/19/2007 - 40mg Geremias Nowak 01/13/2008 Tablets Advair Diskus 1 puff bid Pop S. 02/19/2007 - 250/50 Geremias Nowak 02/10/2012 Misc Levaquin 1 PO qd 30tabs Pop S. 02/19/2007 - 500mg Geremias Nowak 06/26/2007 Tablets Valium 1 tablet po q 6 4tabs Qutaybsarahi S. 02/19/2007 - 5mg Tablets hrs prn Geremias Nowak 02/26/2007 Restasis Multidose 1 gtts each eye Unknown - bid 04/27/2018 0.05% Emulsion Claritin 1 tab daily as Unknown - 10mg needed 01/18/2019 Capsules Acyclovir 2 by mouth 2 Unknown - 200mg times a day 01/18/2019 Capsules Pazeo 1 drop each eye Unknown - 0.7% Solution daily 06/04/2016 Tylenol Codeine 1 tab by mouth Unknown - every 8 hours as 10/25/2015 7.5/325 needed, pain Provigil 1 by mouth every Unknown - 200mg day 08/15/2015 Tablets Claritin 1 tablet po as 30tabs Unknown - 10mg Tablets needed 08/15/2015 Cymbalta 1 tablet at noon 90caps Unknown - 30mg Caps , taken along 04/03/2015 Part with 60mg tablet Cymbalta 1 tablet Am 30caps Unknown - 60mg Caps 04/03/2015 Part Prednisone take 3 po qam x 20tabs Unknown - 20mg 3days, then 2 po 04/03/2015 Tablets qam x3 days then 1 po qam x3 days then 1/2 po qam x3 days (take in am with food)prn Prozac 1 po qd 30caps Unknown - 80mg Capsules 09/16/2014 Benzonatate po tid prn 20caps Unknown - 200mg 04/07/2017 Capsules Medications Administered in Office Medication SIG Qnty Indications Ordering Provider Date Triamcinolone (Kenalog) Rick Saravia MD 02/25/2019 Injection Depomedrol 40MG Brittany Chaney M.D. 11/23/2018 Injection Depomedrol 40MG Brittany Chaney M.D. 05/28/2018 Injection Depomedrol 40MG Brittany Chaney M.D. 12/25/2017 Injection Depomedrol 40MG Brittany Chaney M.D. 07/17/2017 Injection Depomedrol 40MG Brittany Chaney M.D. 01/20/2017 Injection Depomedrol 40MG Brittany Chaney M.D. 10/26/2015 Injection Depomedrol 80MG Brittany Chaney M.D. 03/09/2015 Injection Vital Signs Date Vital Result Comment 04/06/2019 1:42pm Height 63 inches 5'3" Weight 128.00 lb Heart Rate 106 /min BP Systolic 128 mmHg BP Diastolic 58 mmHg Body Temperature 98.0 F Pain Level 9 BMI (Body Mass Index) 22.7 kg/m2 03/11/2019 1:06pm Height 63 inches 5'3" Weight 182.00 lb BP Systolic 143 mmHg BP Diastolic 72 mmHg Respiratory Rate 18 /min Pain Level 7 BMI (Body Mass Index) 32.2 kg/m2 02/25/2019 9:37am Height 63 inches 5'3" Weight 182.00 lb BP Systolic 126 mmHg BP Diastolic 70 mmHg Respiratory Rate 20 /min Pain Level 8 BMI (Body Mass Index) 32.2 kg/m2 01/19/2019 2:49pm Height 63 inches 5'3" Weight 182.00 lb with shoes Heart Rate 84 /min BP Systolic Sitting 150 mmHg ule sitting reg cuff BP Diastolic Sitting 84 mmHg ule sitting reg cuff BP Systolic Standing 140 mmHg BP Diastolic Standing 84 mmHg BMI (Body Mass Index) 32.2 kg/m2 Ejection Fraction 55-60% Echo 12/08/13 11/23/2018 10:23am Height 63 inches 5'3" Weight 182.00 lb Heart Rate 64 /min BP Systolic 140 mmHg BP Diastolic 72 mmHg Body Temperature 98.1 F Pain Level 6 BMI (Body Mass Index) 32.2 kg/m2 05/28/2018 2:16pm Height 63 inches 5'3" Weight 189.00 lb Heart Rate 76 /min BP Systolic 134 mmHg BP Diastolic 74 mmHg Body Temperature 97.5 F BMI (Body Mass Index) 33.5 kg/m2 02/05/2018 4:04pm Height 61.5 inches 5'1.50" Weight 193.00 lb Heart Rate 64 /min BP Systolic 162 mmHg large cuff BP Diastolic 90 mmHg large cuff BMI (Body Mass Index) 35.9 kg/m2 Ejection Fraction 55-60% echo 12-08-2013 12/25/2017 1:07pm Height 61.5 inches 5'1.50" Weight 179.00 lb Respiratory Rate 16 /min Body Temperature 97.9 F BMI (Body Mass Index) 33.3 kg/m2 07/17/2017 3:43pm Height 61.5 inches 5'1.50" Weight 179.00 lb BP Systolic 130 mmHg BP Diastolic 78 mmHg Respiratory Rate 18 /min Pain Level 4 BMI (Body Mass Index) 33.3 kg/m2 04/08/2017 8:54am Height 61.5 inches 5'1.50" Weight 179.00 lb w/shoes Heart Rate 72 /min BP Systolic Sitting 128 mmHg LA reg cuff BP Diastolic Sitting 84 mmHg LA reg cuff BMI (Body Mass Index) 33.3 kg/m2 Ejection Fraction 55-60% Echo 12/08/13 01/20/2017 8:31am Height 61.5 inches 5'1.50" Weight 179.00 lb Heart Rate 66 /min BP Systolic 133 mmHg BP Diastolic 85 mmHg Body Temperature 96.8 F BMI (Body Mass Index) 33.3 kg/m2 06/05/2016 3:52pm Height 62 inches 5'2" Weight 187.00 lb w/shoes Heart Rate 72 /min BP Systolic Sitting 130 mmHg LA reg cuff BP Diastolic Sitting 80 mmHg LA reg cuff BMI (Body Mass Index) 34.2 kg/m2 Ejection Fraction 55-60% Echo 12/08/13 10/26/2015 8:32am Height 62 inches 5'2" Weight 190.00 lb Pain Level 4 BMI (Body Mass Index) 34.7 kg/m2 08/16/2015 3:05pm Height 62 inches 5'2" Weight 190.00 lb w/shoes Heart Rate 66 /min BP Systolic Sitting 120 mmHg LA reg cuff BP Diastolic Sitting 74 mmHg LA reg cuff BMI (Body Mass Index) 34.7 kg/m2 Ejection Fraction 55-60 echo 12/08/13 04/03/2015 10:47am Height 62 inches 5'2" Weight 185.25 lb Heart Rate 64 /min BP Systolic Sitting 150 mmHg BP Diastolic Sitting 84 mmHg Respiratory Rate 14 /min Pain Level 4 BMI (Body Mass Index) 33.9 kg/m2 03/09/2015 8:20am Height 62 inches 5'2" Weight 188.00 lb Heart Rate 66 /min BP Systolic 150 mmHg BP Diastolic 76 mmHg Pain Level 8 BMI (Body Mass Index) 34.4 kg/m2 09/19/2014 3:40pm Height 63 inches 5'3" Weight 183.00 lb with shoes Heart Rate 68 /min BP Systolic Sitting 160 mmHg Ra reg cuff BP Diastolic Sitting 100 mmHg Ra reg cuff BP Systolic Standing 148 mmHg Ra reg cuff BP Diastolic Standing 94 mmHg Ra reg cuff Respiratory Rate 16 /min BMI (Body Mass Index) 32.4 kg/m2 12/06/2013 10:30am Height 63 inches 5'3" Weight 184.00 lb Heart Rate 60 /min BP Systolic Sitting 134 mmHg BP Diastolic Sitting 74 mmHg BMI (Body Mass Index) 32.6 kg/m2 09/06/2013 2:55pm Height 63 inches 5'3" Weight 185.00 lb Heart Rate 67 /min BP Systolic 136 mmHg BP Diastolic 80 mmHg BMI (Body Mass Index) 32.8 kg/m2 02/10/2013 9:53am Height 63 inches 5'3" Weight 180.00 lb Heart Rate 72 /min BP Systolic Sitting 132 mmHg BP Diastolic Sitting 90 mmHg Respiratory Rate 20 /min BMI (Body Mass Index) 31.9 kg/m2 02/10/2012 8:48am Height 63 inches 5'3" Weight 173.00 lb Heart Rate 69 /min BP Systolic 122 mmHg BP Diastolic 78 mmHg BMI (Body Mass Index) 30.6 kg/m2 01/04/2011 10:22am Height 63 inches 5'3" Weight 179.00 lb Heart Rate 68 /min BP Systolic 120 mmHg BP Diastolic 80 mmHg Respiratory Rate 16 /min BMI (Body Mass Index) 31.7 kg/m2 08/23/2009 9:09am Height 63 inches 5'3" Heart Rate 67 /min BP Systolic Sitting 140 mmHg L BP Diastolic Sitting 82 mmHg L 01/13/2008 11:42am Height 63 inches 5'3" Weight 181.00 lb Heart Rate 63 /min BP Systolic Sitting 104 mmHg L BP Diastolic Sitting 70 mmHg L BMI (Body Mass Index) 32.1 kg/m2 06/26/2007 3:20pm Height 63 inches 5'3" Weight 188.25 lb Heart Rate 76 /min reg BP Systolic Sitting 130 mmHg BP Diastolic Sitting 74 mmHg BMI (Body Mass Index) 33.3 kg/m2 05/13/2007 2:36pm Height 63 inches 5'3" Weight 190.00 lb Heart Rate 64 /min BP Systolic Sitting 144 mmHg R BP Diastolic Sitting 84 mmHg R BMI (Body Mass Index) 33.7 kg/m2 02/26/2007 1:35pm Height 63 inches 5'3" Weight 184.00 lb Heart Rate 68 /min BP Systolic Sitting 140 mmHg L BP Diastolic Sitting 88 mmHg L BMI (Body Mass Index) 32.6 kg/m2 Results Test Date Facility Test Result H/L Range Note Order [facility] [employer] In-House EKG <pending> 018 Laboratory test [facility] Emelia Screen Negative N Negative 1 finding [address] [place] [address] [phone] Immunoglobulins [facility] Immunoglobulin G 798 mg/dL N 767 - 1590 2 Serum Quant [address] [place] [address] [phone] Immunoglobulin M 36 mg/dL Abnormal 37 - 286 Immunoglobulin A 258 mg/dL N 61 - 356 Laboratory test 04/03/2015 [facility] C Reactive 5.97 mg/L High < 5.00 3 finding 101 [facility] [place] [address] [phone] 1 The above EMELIA screen is designed for the detection of antibodies to extractable nuclear antigen (EMELIA) in human serum. It is a combination test for the detection of antibodies to GAS TENDER, Sm, SS-A (Ro), and SS-B (La) nuclear antigens. 2 Test Performed by: [facility] [place] [address] Beef Cattle Specialist: José Miguel Moreau II, M.D., Ph.D. 3 Acute inflammation: >10.00 Procedures Date Code Description Status 02/25/201928886 Inject/Drain Joint/Bursa Major W/O US Completed 01/19/2019 08237 EKG Tracing & Interpretation Completed 11/23/2018 66352 Inject Tendon Sheath Or Ligament Aponeurosis Eg Plantar Completed Fascia 05/28/2018 Inject/Drain Joint/Bursa Small W/O US Completed 02/05/2018 27626 EKG Tracing & Interpretation Completed 12/25/201772372 Inject/Drain Joint/Bursa Small W/O US Completed 07/17/2017 Inject/Drain Joint/Bursa Small W/O US Completed 04/08/2017 38410 EKG Tracing & Interpretation Completed 01/20/2017 Inject/Drain Joint/Bursa Small W/O US Completed 06/05/2016 93777 EKG Tracing & Interpretation Completed 10/26/2015 Inject/Drain Joint/Bursa Small W/O US Completed 09/05/2015 09445 Holter Monitor Review (24 hr)dr review & interp only Completed 09/05/2015 28438 ECG Monitor/Recording W/Visual Superimposition Scanning Completed 08/31/2015 35491 Holter Monitor Review (24 hr)dr review & interp only Completed 08/31/2015 50212 ECG Monitor/Recording W/Visual Superimposition Scanning Completed 08/16/2015 40927 EKG Tracing & Interpretation Completed 03/09/2015 Inject/Drain Joint/Bursa Small W/O US Completed 12/08/2013 74099 ECHO Transthoracic, Real-Time 2D With Doppler And Color Completed Flow 12/06/2013 89394 EKG Tracing & Interpretation Completed 09/06/2013 62220 Closed TX Scaphoid (Navicular) W/O Manipulation Completed 02/25/2013 13003 ECHO Transthoracic, Real-Time 2D With Doppler And Color Completed Flow 02/10/2013 38338 EKG Tracing & Interpretation Completed 02/10/2012 78881 EKG Tracing & Interpretation Completed 01/04/2011 42487 EKG Tracing & Interpretation Completed 09/06/2009 57656 ECHO Transthoracic, Real-Time 2D With Doppler And Color Completed Flow 08/23/2009 12068 EKG Tracing & Interpretation Completed 01/13/2008 06590 EKG Tracing & Interpretation Completed 03/27/2007 15568 Stress Test Supervsn W/Out I/R Completed 03/27/2007 71648 Stress Test Supervsn W/Out I/R Completed 03/27/2007 22943 Treadmill Interp/Report Only Completed 03/27/2007 14139 Stress ECHO Interpretation/Report Hospital Completed 03/27/2007 78040 Stress ECHO Interpretation/Report Hospital Completed 02/27/2007 46681 Color Doppler Completed 02/27/2007 92251 Pulse Doppler & Continuous Wave Completed 02/27/2007 27503 Pulse Doppler & Continuous Wave Completed 02/27/2007 48256 Echocardiogram Completed 02/26/2007 11772 EKG Tracing & Interpretation Completed Encounters Type Date Location Provider Dx Diagnosis Office Visit 03/11/2019 Orthopedic Rick Saravia MD M75.122 Complete 1:00p [facility] rotatr-cuff tear/ruptr of left shoulder, not trauma Office Visit 02/25/2019 Orthopedic Rick Saravia MD M25.512 Pain in left 9:30a [facility] shoulder S46.012A Strain of musc/tend the rotator cuff of left shoulder, init Office Visit 01/19/2019 3:00p [facility] Pop S. I10 Anju Nowak M.D. (primary) hypertension E78.49 Other hyperlipidemia E66.9 Obesity, unspecified R94.31 Abnormal electrocardiogram [ECG] [EKG] Office Visit 11/23/2018 [facility] Brittany M65.4 Radial styloid 10:15a [facility] Chaney tenosynovitis [de C.M.ATahir Quervain] Office Visit 07/11/2018 [facility] Nathan Mccloud T78.2xxA Anaphylactic 10:50a Assoc,romain Doty, pilar, Hospitalists Geremias,FACP unspecified, initial encounter J45.901 Unspecified asthma with (acute) exacerbation I10 Essential (primary) hypertension F43.23 Adjustment disorder with mixed anxiety and depressed mood Office Visit 07/10/2018 [facility] Mckay T78.2xxA Anaphylactic 10:50a Assocromain M.D. shock, Hospitalists unspecified, initial encounter J45.901 Unspecified asthma with (acute) exacerbation I10 Essential (primary) hypertension F43.23 Adjustment disorder with mixed anxiety and depressed mood Office Visit 02/05/2018 4:20p [facility] Pop S. I10 Anju Nowak M.D. (primary) hypertension E78.4 Other hyperlipidemia R94.31 Abnormal electrocardiogram [ECG] [EKG] Office Visit 04/08/2017 9:00a [facility] Pop S. I10 Essential Geremias Nowak (primary) hypertension E78.4 Other hyperlipidemia E66.9 Obesity, unspecified Z68.33 Body mass index (BMI) 33.0-33.9, adult R94.31 Abnormal electrocardiogram [ECG] [EKG] Office Visit 06/05/2016 4:00p [facility] Pop S. I10 Anju Nowak M.D. (primary) hypertension E78.4 Other hyperlipidemia R94.31 Abnormal electrocardiogram [ECG] [EKG] Z68.34 Body mass index (BMI) 34.0-34.9, adult E66.9 Obesity, unspecified Office Visit 08/16/2015 3:00p [facility] Pop S. 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 727.04 Tenosynovitis Radial Styloid Office Visit 09/19/2014 [facility] Pop S. 401.1 Hypertension 3:40p Cardiology Buddy Nowak M.D. [facility] [employer] 272.4 Hyperlipidemia Other Unspec Office Visit 12/06/2013 Trish Lord S. 401.1 Hypertension 10:20a Cardiology Geremias Nowak Benign 786.05 Shortness Of Breath 786.50 Pain Chest Unspec 272.4 Hyperlipidemia Other Unspec Office Visit 09/06/2013 2:30p Orthopedic Rd Bob, 814.01 FX Carpal [facility]ias Navicular C.M.ATahir (Scaphoid) Of Wrist Closed 840.9 Sprains & Strains Shoulder & Upper Arm Unspec 842.00 Sprains & Strains Wrist & Hand Unspec Site Office Visit 02/10/2013 Trish Lord S. 401.1 Hypertension 10:00a Cardiology Geremias Nowak Benign 272.4 Hyperlipidemia Other Unspec 786.05 Shortness Of Breath 424.0 Mitral Valve Disorder Office 02/27/2012 [facility] Qutaybeh S. 794.31 Electrocardiogram Visit 8:30a Cardiology Geremias Nowak (ECG) (EKG) Abnormal 401.1 Hypertension Benign 272.4 Hyperlipidemia Other Unspec 786.05 Shortness Of Breath Office Visit 02/10/2012 8:40a [facility] Qutaybeh S. 786.05 Shortness Of AT [facility] Geremias Nowak Breath 401.1 Hypertension Benign 272.4 Hyperlipidemia Other Unspec 424.0 Mitral Valve Disorder 794.31 Electrocardiogram (ECG) (EKG) Abnormal Office Visit 01/04/2011 [facility] Qutaybeh S. 401.1 Hypertension 10:20a Feli Nowak M.D. Benign 272.4 Hyperlipidemia Other Unspec 424.0 Mitral Valve Disorder Office Visit 08/23/2009 [facility] Qutaybeh S. 401.1 Hypertension 9:00a Feli Nowak M.D. Benign 272.4 Hyperlipidemia Other Unspec Office Visit 01/13/2008 [facility] Qutaybeh S. 401.1 Hypertension 11:40a Feli Nowak M.D. Benign 272.4 Hyperlipidemia Other Unspec 786.05 Shortness Of Breath 794.31 Electrocardiogram (ECG) (EKG) Abnormal Office Visit 06/26/2007 [facility] Qutaybeh S. 401.1 Hypertension 3:20p Feli Nowak M.D. Benign 272.4 Hyperlipidemia Other Unspec 786.05 Shortness Of Breath 424.0 Mitral Valve Disorder Office Visit 05/13/2007 [facility] Qutaybeh S. 401.0 Hypertension 2:40p Feli Nowak M.D. Malignant 786.05 Shortness Of Breath 424.0 Mitral Valve Disorder 272.4 Hyperlipidemia Other Unspec Office Visit 02/26/2007 [facility] Qutaybeh S. 786.09 Dyspnea & 1:40p Cardiology Geremias Nowak Respiratory Abnormalities Other 786.05 Shortness Of Breath 401.1 Hypertension Benign 272.4 Hyperlipidemia Other Unspec Plan of Treatment 04/06/2019 - Rick Saravia, MDM75.122 Complete rotator cuff tear or rupture of left shoulder, notNew Xrays:Shoulder Left 2+ VWS, Ordered: 04/06/19Follow up: Follow up: for h and p Follow up:M25.512 Pain in left shoulder
--- NOTE | 2019-04-16 16:45 | ED ---
Skin Complaint - HPI Summary HPI Summary: 68-year-old female presents with rash for the past couple days. She states she had a rash similar rash about 2 weeks ago and was diagnoses with lyme she had a course of doxycycline and steroid and states the rash improved. She states rash is now returning. she denies any sun exposure with the doxycycline. She denies any chest pain or shortness breath. States that she does have pain from her left shoulder to her neck and down her arm. Does have a known rotator cuff injury that is going to get surgery on. Denies any headache. No change in vision. States she has limited range of motion of the left shoulder. She is concerned that she has has shingles as has history of shingles. - History of Current Complaint Chief Complaint: EDGeneral Time Seen by Provider: 04/16/19 15:37 Stated Complaint: LEFT ARM PAIN , LEFT SIDE PAIN LEFT LEG PAIN PER P Pain Intensity: 10 - Additional Pertinent History Primary Care Physician: ANA LILIA - Allergy/Home Medications Allergies/Adverse Reactions: Allergies Allergy/AdvReac Type Severity Reaction Status Date / Time erythromycin base Allergy Rash Verified 04/16/19 14:40 mold Allergy Shortness Verified 04/16/19 14:40 of Breath pollen extracts Allergy Shortness Verified 04/16/19 14:40 of Breath soy Allergy GI Upset Verified 04/16/19 14:40 tree and shrub pollen Allergy Shortness Verified 04/16/19 14:40 of Breath cats Allergy Difficulty Uncoded 04/16/19 14:40 Breathing PMH/Surg Hx/FS Hx/Imm Hx Endocrine/Hematology History: Denies: Hx Diabetes, Hx Thyroid Disease Cardiovascular History: Reports: Hx Hypertension - boarderline htn ON MEDS Denies: Hx Pacemaker/ICD, Other Cardiovascular Problems/Disorders Respiratory History: Reports: Hx Asthma Denies: Hx Chronic Obstructive Pulmonary Disease (COPD) GI History: Reports: Hx Gastroesophageal Reflux Disease, Hx Hiatal Hernia Denies: Hx Ulcer, Other GI Disorders History: Denies: Hx Renal Disease Musculoskeletal History: Reports: Hx Arthritis - MOST JOINTS ALL OVER, Hx Tendonitis Denies: Other Musculoskeletal History Sensory History: Reports: Hx Cataracts - EKMI, Hx Contacts or Glasses - GLASSES Denies: Hx Hearing Aid Opthamlomology History: Reports: Hx Cataracts - KEMI, Hx Contacts or Glasses - GLASSES Neurological History: Denies: Other Neuro Impairments/Disorders Psychiatric History: Reports: Hx Anxiety - ON MEDS, Hx Depression Denies: Hx Panic Disorder - Surgical History Surgery Procedure, Year, and Place: HYSTERECTOMY. right hand surgery after dog bite - [facility]- 10 years ago. CATARACTS BILATERAL EYES Hx Anesthesia Reactions: Yes - EASILY WAKES UP DURING SURGERY Infectious Disease History: No Infectious Disease History: Reports: Hx Shingles - "a few times." Denies: Hx Clostridium Difficile, Hx Hepatitis, Hx Human Immunodeficiency Virus (HIV), Hx of Known/Suspected MRSA, Hx Tuberculosis, Hx Known/Suspected VRE , Hx Known/Suspected VRSA, History Other Infectious Disease, Traveled Outside the [place] in Last 30 Days - Family History Known Family History: Positive: Unknown, Cardiac Disease, Hypertension - Social History Alcohol Use: Weekly Alcohol Amount: 2 PER WEEK Hx Substance Use: No Substance Use Type: Reports: None Hx Tobacco Use: No Smoking Status (MU): Never Smoked Tobacco Have You Smoked in the Last Year: No Review of Systems Negative: Fever Negative: Chest Pain Negative: Shortness Of Breath Positive: Myalgia - left shoulder pain Positive: Rash All Other Systems Reviewed And Are Negative: Yes Physical Exam Triage Information Reviewed: Yes Vital Signs On Initial Exam: Initial Vitals Temp Pulse Resp BP Pulse Ox 97.9 F 78 18 136/79 92 04/16/19 14:30 04/16/19 14:30 04/16/19 14:30 04/16/19 14:30 04/16/19 14:30 Vital Signs Reviewed: Yes Appearance: Positive: Well-Appearing Skin: Positive: Warm, Dry, Other - erythema with a couple of papules on left forearm, scattered papules on chest on left side Head/Face: Positive: Normal Head/Face Inspection Eyes: Positive: Normal, Conjunctiva Clear ENT: Positive: Pharynx normal Respiratory/Lung Sounds: Positive: Clear to Auscultation, Breath Sounds Present Cardiovascular: Positive: Normal, RRR Abdomen Description: Positive: Nontender, Soft Bowel Sounds: Positive: Present Musculoskeletal: Positive: Limited @ - left knee, Other - good pulses Neurological: Positive: Normal Psychiatric: Positive: Normal Diagnostics - Vital Signs Vital Signs Temp Pulse Resp BP Pulse Ox 04/16/19 14:30 97.9 F 78 18 136/79 92 - Laboratory Lab Statement: Any lab studies that have been ordered have been reviewed, and results considered in the medical decision making process. Course/Dx - Course Course Of Treatment: 68-year-old female presents with rash for the past couple days. She states she had a rash similar rash about 2 weeks ago and was diagnoses with lyme she had a course of doxycycline and steroid and states the rash improved. She states rash is now returning. she denies any sun exposure with the doxycycline. She denies any chest pain or shortness breath. States that she does have pain from her left shoulder to her neck and down her arm. Does have a known rotator cuff injury that is going to get surgery on. Denies any headache. No change in vision. States she has limited range of motion of the left shoulder. She is concerned that she has has shingles as has history of shingles. On exam has erythema with couple papules present on left forearm. Has scattered papular rash on chest. Rash is not consistent with shingles. Discuss options with patient and patient wants to do a full course of doxycycline for 2 more weeks as she believes she has lyme disease although rash does not appear like classic lyme and will also do a steroid taper. rash appears more like contact dermaitits. Gave referral to dermatology. Told to follow-up with primary. told if develop any chest pain or shortness breath to return. Patient understands agrees the plan. - Differential Diagnoses - Skin Complaint Differential Diagnoses: Contact Dermatitis, Drug Rash, Tick Born Illness - Diagnoses Provider Diagnoses: Rash Discharge - Sign-Out/Discharge Documenting (check all that apply): Patient Departure Patient Received Moderate/Deep Sedation with Procedure: No - Discharge Plan Condition: Good Disposition: HOME Prescriptions: DOXYcycline CAP(*) [DOXYcycline 100MG CAP(*)] 100 mg PO BID #28 cap predniSONE TAB* [Deltasone 10 MG TAB*] 10 mg PO DAILY #25 tab predniSONE TAB* [Deltasone TAB*] 5 mg PO DAILY #2 tab Patient Education Materials: Acute Rash (ED) Referrals: Fernando Barajas MD [Medical Doctor] - Katharina Gonzalez MD [Primary Care Provider] - Additional Instructions: take 4 tablets (40) for 4 days, two tablets(20mg) for 3 days, 1 tablet (10mg) for 3 days, 5mg tablet for 2 days take doxycycline twice a day for 2 weeks Follow up with primary a referral was given for dermatology Return to ED if develop any new or worsening symptoms - Billing Disposition and Condition Condition: GOOD Disposition: Home
[2019-04-16 17:48] VITALS: BP 130/85
== END 2019-04-16 17:47 | disposition home or self-care (01) ==
LOC: ED 14:17
DX: R21 Rash and other nonspecific skin eruption (principal); I10 Essential (primary) hypertension; J45.909 Unspecified asthma, uncomplicated; K21.9 Gastro-esophageal reflux disease without esophagitis; F41.9 Anxiety disorder, unspecified; F32.9 Major depressive disorder, single episode, unspecified; M25.512 Pain in left shoulder
CPT/HCPCS: 99282

== ENCOUNTER 2019-04-23 21:29 | Emergency (ER) | payer MEDICARE, BC ==
--- NOTE | 2019-04-24 00:07 | ED ---
Lower Extremity - HPI Summary HPI Summary: Patient complains of left ankle pain after twisting it today at 5 PM. Denies any other pain symptoms or injury. Patient took Tylenol and codeine at 5 PM. - History of Current Complaint Chief Complaint: EDExtremityLower Stated Complaint: LT ANKLE INJURY PER DAUGHTER Time Seen by Provider: 04/23/19 23:48 Hx Obtained From: Patient Mechanism Of Injury: Twisted Onset of Pain: Immediate Onset/Duration: Hours Severity Initially: Severe Severity Currently: Severe Pain Intensity: 10 Pain Scale Used: 0-10 Numeric Timing: Constant Character Of Pain: Dull, Aching, Throbbing Associated Signs And Symptoms: Positive: Swelling Aggravating Factor(s): Standing, Ambulation, Movement, Weight Bearing Alleviating Factor(s): Rest, Elevation Able to Bear Weight: Yes - Allergies/Home Medications Allergies/Adverse Reactions: Allergies Allergy/AdvReac Type Severity Reaction Status Date / Time erythromycin base Allergy Rash Verified 04/23/19 21:40 mold Allergy Shortness Verified 04/23/19 21:40 of Breath pollen extracts Allergy Shortness Verified 04/23/19 21:40 of Breath soy Allergy GI Upset Verified 04/23/19 21:40 tree and shrub pollen Allergy Shortness Verified 04/23/19 21:40 of Breath cats Allergy Difficulty Uncoded 04/23/19 21:40 Breathing Home Medications: Home Medications Fluticasone/Vilanterol [Breo Ellipta 200-25 Mcg INH] 1 each IH 04/24/19 [History ] ValACYclovir (*) [Valtrex 500 mg (*)] 500 mg PRN 04/24/19 [History] PMH/Surg Hx/FS Hx/Imm Hx Endocrine/Hematology History: Denies: Hx Diabetes, Hx Thyroid Disease Cardiovascular History: Reports: Hx Hypertension - boarderline htn ON MEDS Denies: Hx Pacemaker/ICD, Other Cardiovascular Problems/Disorders Respiratory History: Reports: Hx Asthma Denies: Hx Chronic Obstructive Pulmonary Disease (COPD) GI History: Reports: Hx Gastroesophageal Reflux Disease, Hx Hiatal Hernia Denies: Hx Ulcer, Other GI Disorders History: Denies: Hx Renal Disease Musculoskeletal History: Reports: Hx Arthritis - MOST JOINTS ALL OVER, Hx Tendonitis Denies: Other Musculoskeletal History Sensory History: Reports: Hx Cataracts - KEMI, Hx Contacts or Glasses - GLASSES Denies: Hx Hearing Aid Opthamlomology History: Reports: Hx Cataracts - KEMI, Hx Contacts or Glasses - GLASSES Neurological History: Denies: Other Neuro Impairments/Disorders Psychiatric History: Reports: Hx Anxiety - ON MEDS, Hx Depression Denies: Hx Panic Disorder - Surgical History Surgery Procedure, Year, and Place: HYSTERECTOMY. right hand surgery after dog bite - [facility]- 10 years ago. CATARACTS BILATERAL EYES Hx Anesthesia Reactions: Yes - EASILY WAKES UP DURING SURGERY - Immunization History Immunizations Up to Date: Yes Infectious Disease History: No Infectious Disease History: Reports: Hx Shingles - "a few times." Denies: Hx Clostridium Difficile, Hx Hepatitis, Hx Human Immunodeficiency Virus (HIV), Hx of Known/Suspected MRSA, Hx Tuberculosis, Hx Known/Suspected VRE , Hx Known/Suspected VRSA, History Other Infectious Disease, Traveled Outside the [place] in Last 30 Days - Family History Known Family History: Positive: Unknown, Cardiac Disease, Hypertension - Social History Alcohol Use: Weekly Alcohol Amount: 2 PER WEEK Hx Substance Use: No Substance Use Type: Reports: None Hx Tobacco Use: No Smoking Status (MU): Never Smoked Tobacco Have You Smoked in the Last Year: No Review of Systems Constitutional: Negative Eyes: Negative ENT: Negative Cardiovascular: Negative Respiratory: Negative Gastrointestinal: Negative Genitourinary: Negative Musculoskeletal: Other Skin: Negative Neurological: Negative Psychological: Normal All Other Systems Reviewed And Are Negative: Yes Physical Exam - Summary Physical Exam Summary: Mild swelling to left lateral ankle. Mild pain with palpation of left lateral ankle. No erythema, ecchymosis, deformity noted. PMS intact distally. No pain with flexion or extension of left knee. Triage Information Reviewed: Yes Vital Signs On Initial Exam: Initial Vitals Temp Pulse Resp BP Pulse Ox 97.4 F 80 16 130/70 96 04/23/19 21:35 04/23/19 21:35 04/23/19 21:35 04/23/19 21:35 04/23/19 21:35 Vital Signs Reviewed: Yes Appearance: Positive: Well-Appearing Skin: Positive: Warm Head/Face: Positive: Normal Head/Face Inspection Eyes: Positive: Normal Neck: Positive: Supple Respiratory/Lung Sounds: Positive: Clear to Auscultation Cardiovascular: Positive: Normal Abdomen Description: Positive: Nontender Musculoskeletal: Positive: Normal Neurological: Positive: Normal Psychiatric: Positive: Normal AVPU Assessment: Alert - [place] Coma Scale Best Eye Response: 4 - Spontaneous Best Motor Response: 6 - Obeys Commands Best Verbal Response: 5 - Oriented Coma Scale Total: 15 Diagnostics - Vital Signs Vital Signs Temp Pulse Resp BP Pulse Ox 04/23/19 23:20 97.3 F 72 16 132/66 96 04/23/19 21:35 97.4 F 80 16 130/70 96 - Laboratory Lab Statement: Any lab studies that have been ordered have been reviewed, and results considered in the medical decision making process. Lower Extremity Course/Dx - Course Course Of Treatment: Patient complains of left ankle pain after twisting it today at 5 PM. Denies any other pain symptoms or injury. Patient took Tylenol and codeine at 5 PM. Vital signs within normal limits. X-ray negative for fracture. Patient placed in an ankle gel splint. Follow-up with ortho. Rx for oxycodone. - Diagnoses Provider Diagnoses: Left ankle sprain Discharge - Sign-Out/Discharge Documenting (check all that apply): Patient Departure Patient Received Moderate/Deep Sedation with Procedure: No - Discharge Plan Condition: Stable Disposition: HOME Prescriptions: Oxycodone HCl 5 mg PO TID 1 Days #4 tablet MDD 3 tabs Patient Education Materials: Ankle Sprain (ED), Ankle Stirrup Splint (ED) Referrals: Katharina Gonzalez MD [Primary Care Provider] - Mode Gavin MD [Medical Doctor] - Additional Instructions: Ice, rest and ibuprofen if allowed prior to shoulder surgery. Weightbearing as tolerated. If pain persists follow-up with orthopedics Doctor. for further evaluation. - Billing Disposition and Condition Condition: STABLE Disposition: Home
[2019-04-24] MEDS ORDERED: oxyCODONE TAB* 5 MG TAB PO ONE (00:09)
[2019-04-24 00:38] VITALS: BP 150/77
== END 2019-04-24 00:09 | disposition home or self-care (01) ==
LOC: ED 21:29
DX: S93.402A Sprain of unspecified ligament of left ankle, initial encounter (principal); X50.1XXA Overexertion from prolonged static or awkward postures, initial encounter; Y92.9 Unspecified place or not applicable; I10 Essential (primary) hypertension; F41.9 Anxiety disorder, unspecified; Z88.1 Allergy status to other antibiotic agents
CPT/HCPCS: 99283; A9270-GY

== ENCOUNTER 2019-05-03 07:53 | Day surgery (SDC) | payer MEDICARE, BC ==
--- NOTE | 2019-04-29 13:36 | HP ---
PREOPERATIVE HISTORY AND PHYSICAL: DATE OF ADMISSION/SURGERY: 05/03/19 [facility] ATTENDING SURGEON: Dr. Rick Saravia.* (DICTATED BY JIA WOLFE) PROCEDURE: Left shoulder arthroscopic rotator cuff repair, decompression, debridement, and possible subpectoral biceps tenodesis. CHIEF COMPLAINT: Left shoulder pain. HISTORY OF PRESENT ILLNESS: Queta is a 68-year-old who presents to clinic for left shoulder pain due to a rotator cuff tear and biceps tendonitis. She has failed conservative measures and therefore, agreed to undergo a left shoulder arthroscopic rotator cuff repair, decompression, debridement, and possible subpectoral biceps tenodesis by Dr. Saravia on 05/03/19. PAST MEDICAL HISTORY: 1. Hypertension. 2. Sjogren's. 3. Mitral valve disorder. 4. Hyperlipidemia. 5. Asthma with dyspnea. 6. Osteoarthritis. 7. GERD. 8. Hypothyroidism. PAST SURGICAL HISTORY: 1. Hysterectomy. 2. x2. 3. Frontal sinus surgery x2. 4. Right hand surgery. 5. Bilateral cataracts. The patient denies prior complications with anesthesia. MEDICATIONS: 1. Lipitor 10 mg one by mouth at night. 2. Singulair 10 mg one by mouth at night. 3. Vitamin D 2000 units daily. 4. Amlodipine 5 mg daily. 5. Prozac 40 mg 2 times every day. 6. Wellbutrin 300 mg one by mouth daily. 7. Levocetirizine 5 mg one by mouth in the evening. 8. Albuterol sulfate 0.083% one vial via nebulizer 4 times a day as needed. 9. Losartan. 10. Potassium/hydrochlorothiazide 100/25 one by mouth daily. 11. Ventolin HFA 108 (90) 2 puffs by mouth 4 times a day. 12. Valtrex 500 mg 1 by mouth every day. 13. Folic acid 400 mcg 1 tab daily. 14. Breo-Ellipta 200 mcg/25 mcg per inhalation 1 puff daily. 15. Benzonatate 100 mg 1 cap 3 times a day. 16. Desloratadine 5 mg 1 by mouth every day. ALLERGIES: ERYTHROMYCIN, LYRICA, CYMBALTA, BACTRIM. FAMILY HISTORY: Positive for heart disease, hypertension, CVA, and rheumatoid arthritis. Denies family history of DVT or PE. SOCIAL HISTORY: She lives with her spouse. She works as a headmistress. She denies tobacco use. She reports occasional consumption. She is left-hand dominant. REVIEW OF SYSTEMS: A 14-point review of systems was reviewed with the patient and positive for current complaints; otherwise, negative. Denies fever, chills , chest pain, shortness of breath, history of bleeding disorder, history of DVT or PE. PHYSICAL EXAMINATION GENERAL: A 68-year-old well-developed, well-nourished female in no acute distress. VITAL SIGNS: Height 63, weight 186. Blood pressure 126/62, respiratory rate 18 , BMI 32.9. HEENT: Normocephalic and atraumatic. PERRLA. Throat clear. NECK: Supple. PULMONARY: Lungs are clear to auscultation bilaterally. No wheezing, rhonchi, or rales. CARDIO: Regular rate and rhythm. S1 and S2. No murmurs, gallops, or rubs. No edema. ABDOMEN: Positive bowel sounds. Soft and nontender. NEUROLOGIC: Alert and oriented x3. Cranial nerves grossly intact. MUSCULOSKELETAL: Left upper extremity: Skin is intact. No warmth or erythema or signs of infection. Forward flexion and abduction 80, passively able to go further, +4/5 strength to rotator cuff testing with pain. Positive impingement with Speed's, Sung', [place]'s. +2 radial pulse. Sensation intact to light touch distally. STUDIES: MRI of the left shoulder revealed full-thickness tear of the rotator cuff with some retraction, mild atrophy of the rotator cuff overall with mild osteoarthritis and fluid along the bicipital groove with biceps tendinopathy. IMPRESSION: Left shoulder rotator cuff tear with biceps tendinitis. PLAN/RECOMMENDATIONS: The patient is scheduled to undergo a left shoulder arthroscopic rotator cuff repair, decompression, debridement, possible subpectoral biceps tenodesis with Dr. Saravia on 05/03/19. She will follow up 10 to 14 days postop for followup and suture removal. Per the patient, she has been cleared by cardiology. She has been off her aspirin for more than a week and Percocet will be used for postoperative pain management. JIA WOLFE [id number]/[facility] #: [id number]
[~2019-05-03 07:53] MED LIST: Buffered Lidocaine 1% SYRIN* 1 ML/SYRINGE INTRADERM ONE; Dexamethasone IV* 4 MG/ML 1 ML (4 MG) IV SLOW PU ONE; Lactated Ringers 1000 ML Bag* 1,000 ML IV SCH
[2019-05-03] MEDS ORDERED: Dexamethasone IV* 4 MG/ML 1 ML (4 MG) ONE (08:01)
[2019-05-03] MEDS ORDERED: ceFAZolin 2 GM in NS PREMIX(*) 2 GM/100 ML BAG IVPB ONE (08:02)
[2019-05-03] MEDS ORDERED: fentaNYL* 50 MCG/ML 2 ML VIAL (100 MCG VIAL) ONE ×5 (08:35→13:38)
[2019-05-03] MEDS ORDERED: Midazolam* 1 MG/ML 2 ML VIAL (2 MG) ONE (08:35)
[2019-05-03] MEDS ORDERED: Propofol* 10 MG/ML 20 ML BTL ONE (08:36)
[2019-05-03] MEDS ORDERED: Ondansetron INJ* 2 MG/ML VIAL ONE ×2 (09:13→12:35)
[2019-05-03] MEDS ORDERED: Bupivacaine 0.25% SDV* 30 ML ONE ×2 (09:33→12:35)
[2019-05-03] MEDS ORDERED: Levalbuterol 0.63MG/3ML NEB* UNIT OF USE INH ONE ×2 (09:57)
[2019-05-03] MEDS ORDERED: HYDROmorphone INJ1* 1 MG/ML SYRINGE IV PRN (09:58)
[2019-05-03] MEDS ORDERED: Naloxone* 0.4 MG/ML 1 ML VIAL IV PRN (09:58)
[2019-05-03] MEDS ORDERED: Acetaminophen IV 1GM/100ML * 1,000 MG/100 ML VIAL IVPB ONE (09:58)
[2019-05-03] MEDS ORDERED: DiMENhydriNATE IV* 50 MG/ML VIAL IV PUSH PRN (09:58)
[2019-05-03] MEDS ORDERED: oxyCODONE TAB* 5 MG TAB PO PRN (09:58)
[2019-05-03] MEDS ORDERED: Lidocaine 2% PF * 5 ML VIAL ONE (10:10)
[2019-05-03] MEDS ORDERED: Rocuronium* 10 MG/ML VIAL ONE (10:10)
[2019-05-03] MEDS ORDERED: Glycopyrrolate IV* 0.2 MG/ML 1 ML VIAL ONE (11:14)
[2019-05-03] MEDS ORDERED: Neostigmine Methylsulfate* 3 MG/3 ML SYRINGE ONE (11:14)
[2019-05-03] MEDS ORDERED: oxyCODONE/Acetamin 5/325 MG* TAB ONE (13:29)
[2019-05-03] MEDS: fentaNYL* 50 MCG/ML 2 ML VIAL (100 MCG VIAL) IV PRN ×3 (13:33→13:58)
[2019-05-03] MEDS ORDERED: Acetaminophen IV 1GM/100ML * 100 ML ONE (13:43)
[2019-05-03 15:09] VITALS: BP 118/75
--- NOTE | 2019-05-03 18:29 | OP ---
CC: PCP, Katharina Gonzalez MD * DATE OF OPERATION: 05/03/19 - [facility] DATE OF : 46 SURGEON: Rick Saravia MD. WOOD FENCE ERECTOR: JIA Dupree. An title assistant was needed for the entirety of the case to help with positioning, retraction, and was utilized throughout all portions of the case. ANESTHESIOLOGIST: Dr. Etienne. ANESTHESIA: General. PRE-OP DIAGNOSIS: Left shoulder full-thickness rotator cuff tear with biceps tenosynovitis. POST-OP DIAGNOSES: Full-thickness very large tear of the supraspinatus and infraspinatus tendons with abundant synovitis and biceps tendonitis. OPERATIVE PROCEDURES: Left shoulder arthroscopy with: 1. Extensive glenohumeral debridement. 2. Subacromial decompression with acromioplasty. 3. Rotator cuff repair in a double row fashion of the supra and infraspinatus tendons along with a Regeneten patch augmentation. 4. Subpectoral biceps tenodesis. INDICATIONS: Queta Szymanski is a 68-year-old female who sustained injury to her shoulder. She has failed conservative treatment. The MRI demonstrated a relatively small full-thickness tear. After extensive discussion of the risks and benefits of surgical versus nonoperative treatment, she has elected to proceed with surgical treatment. Risks and benefits were discussed and included , but were not limited to bleeding; infection; damage to nerves, vessels, surrounding structures; wound nonhealing; persistent pain; need for further surgery; scarring; stiffness; incomplete relief of symptoms; risks of anesthesia ; risk of DVT. IMPLANTS: Three 4.75 HEALICOILS, 2 MULTIFIXES, and 1 medium Regeneten patch as well as 1 Q-Fix 2.8 mm. DESCRIPTION OF PROCEDURE: The patient was greeted in the preoperative area by the attending surgeon. Correct extremity was marked and consent was confirmed. The patient was brought back to the operating suite, where she was placed in the supine position on the operating table. She then underwent general anesthesia with endotracheal intubation, after which she was placed in the right lateral decubitus position. All bony prominences were padded. She was secured with a pegboard. Axillary roll was placed. The left arm was draped unsterilely with 10 pounds of traction. Left shoulder was then prepped and draped in the usual sterile fashion beginning with chlorhexidine soap, scrub, and alcohol wipe, and a final prep with ChloraPrep. After appropriate surgical pause indicating side, site, procedure, and administration of antibiotics, the standard posterolateral portal was made sharply with 11-blade. Scope was introduced into the joint. There was evidence of a full- thickness tear. There was significant amount of synovitis with a lot of friable tissue. Once the glenohumeral joint was identified, the biceps was identified and found to have tearing, tendinosis, and tendonitis with partial tearing and injury at the superior labrum. The anterior, posterior and superior labrum had mild fraying. The glenohumeral joint had grade 0 to 1 changes. The inferior recess was intact, but again significant synovitis. Subscap was intact. There was evidence of a full-thickness tear. Once the intraarticular work was completed, attention was directed to the subacromial space. With the scope in the subacromial space, the lateral portal was made in an outside- in fashion. There was significant amount of synovitis present and time was taken to maintain hemostasis. As this was done, there were significant subdeltoid adhesions. These were carefully released with the electrocautery device as well as with the shaver. Care was taken to try to preserve any normal tissue. As this was done, there were flaps from the stump from the supraspinatus that were visible. The cuff was visualized, but it turned out that the cuff had torn both from the insertion and interstitially. This ended up being not a small tear, but a full- thickness large tear retracted medial to the glenoid involving both the supra and infraspinatus tendons. This took some time to identify because there was significant synovitis. The under-surface of the acromion was skeletonized using the electrocautery device. A 4-0 oval marcia was then used to do an acromioplasty. Attention was directed to the rotator cuff. The cuff tissue again was significantly displaced medially. The cuff tissue was grabbed and found to be significantly scarred. Therefore, blunt devices were used to remove the adhesions. Hemostasis was obtained using electrocautery device. The tissue was very synovitic and friable. Once the cuff was carefully mobilized, it was found to be able to be brought back to the footprint, although the very anterior aspect had not the best quality tissue. Once full mobilization was obtained, attention was directed to the rotator cuff repair. First, a traction suture was placed in the anterosuperior portion of the tendon. The biceps had previously been tenotomized for later tenodesis. [place] placement began first along the medial aspect. Two 4.75 HEALICOILs were placed, bone quality was okay for her age, but they were placed with excellent purchase. Sutures were then passed through horizontal mattress configuration. These were then tied down sequentially. Once these were tied down, the cuff was examined. There was a small dog-ear anteriorly where the tissue quality had been somewhat poor and that needed further coverage; therefore, a third 4.75 HEALICOIL was then placed and this suture was passed in a horizontal mattress configuration and tied down. This was a single row fixation. The remaining sutures from the initial 2 anchors were then passed. One strand from each was passed through the MULTIFIX, which was then secured and one anterolaterally and one posterolaterally for double row fixation. This helped to compress the cuff. Final images were obtained and a decision was made to augment this with a Regeneten patch due to the size and nature of this tear and the patient is very active. Therefore, a size medium Regeneten patch was brought into the field. It was then placed carefully to not damage the previous repair. It was first secured medially with tendon liat and laterally with PEEK liat. The shoulder was then taken through gentle range of motion and was found to be well seated. Final images were obtained. Attention was directed to the biceps. The bed was airplaned to the left side and the anterior aspect of the shoulder was prepped again using ChloraPrep. The 15-blade was used to make an incision in line with the biceps tendon. Soft tissues were carefully dissected to expose the pec fascia. The dissection was done bluntly. The biceps was brought through the wound and found to have tendinosis and synovitis. The groove was then prepared in the usual fashion with electrocautery device, red ball rasp, and osteotome. Q-Fix was drilled unicortically and the Q-Fix was deployed with excellent purchase. Sutures were then passed through 1 cm proximal to the musculotendinous junction of the biceps tendon in a [place] type configuration. This was then tied down and secured. The excess stump was excised. The wounds were then copiously irrigated with sterile saline. The portals were closed with 3-0 nylon. The anterior wound was closed in layers with 3-0 Monocryl deep and running. The portals and the wounds were all injected with 0.25% Marcaine. Sterile dressings were applied. A Cryo/Cuff and UltraSling were applied. She was awoken from anesthesia and transferred to the PACU in stable condition. POSTOPERATIVE PLAN: She will be nonweightbearing. She will be in a sling for 6 weeks. Discharged on pain medication and antibiotics. DVT prophylaxis was considered, but deferred due to no previous personal or family history. I will see the patient back in 10 to 14 days. [id number]/[facility] #: [id number] RUT
== END 2019-05-03 15:24 | disposition home or self-care (01) ==
LOC: OREAST 07:53
PROVIDERS: ATTEND Orthopaedic Surgery
DX: S46.012A Strain of muscle(s) and tendon(s) of the rotator cuff of left shoulder, initial encounter (principal); M75.22 Bicipital tendinitis, left shoulder; M65.812 Other synovitis and tenosynovitis, left shoulder; X58.XXXA Exposure to other specified factors, initial encounter; Y92.9 Unspecified place or not applicable; I10 Essential (primary) hypertension; M35.00 Sjogren syndrome, unspecified; E78.5 Hyperlipidemia, unspecified; I34.0 Nonrheumatic mitral (valve) insufficiency; J45.909 Unspecified asthma, uncomplicated; M19.90 Unspecified osteoarthritis, unspecified site; K21.9 Gastro-esophageal reflux disease without esophagitis; E03.9 Hypothyroidism, unspecified
CPT/HCPCS: A9270-GY; C1713; C1776; J0690; J1100; J2250; J2405; J2704; J2710; J3010; J3490

== ENCOUNTER 2020-01-29 12:19 | Emergency (ER) | payer MEDICARE, BC ==
--- OUTSIDE RECORDS SUMMARY | 2020-01-29 12:28 | XMS REPORT | Continuity of Care Document ---
:1950 External Reference #:[id number] Author Name Deb De La Rosa DO (transmitted by agent of provider Kayla Puga) Address [address] [place] [id number] Problems Active Problems Provider Date Lyme disease Onset: 04/05/2019 Non-traumatic partial tear of left rotator cuff Onset: 03/06/2019 Monoarthritis Onset: 11/07/2015 Asthma Onset: 04/20/2019 Essential hypertension Onset: 06/07/2015 Allergic rhinitis Onset: 06/24/2014 Essential hypertension Onset: 05/27/2019 Erythema chronica migrans Pascual Laird MD Onset: 10/07/2019 Note: Jul 2019 dx lyme dz Social History Type Date Description Comments Sex Unknown Tobacco Use Start: Unknown Patient has never smoked Smoking Status Reviewed: 01/20/20 Patient has never smoked Allergies, Adverse Reactions, Alerts Active Allergies Reaction Severity Comments Date Soy Proteins Wheezing 07/20/2019 Walnuts 10/09/2019 Crestor GI effects 06/25/2019 Lyrica facial swelling/weight gain 06/25/2019 Bactrim swelling hands and feet and Moderate 06/25/2019 shortness Glycine Max Whole Extract wheeze Moderate 06/25/2019 Inactive Allergies Walnuts No Reaction Indicated Severe 06/25/2019 Medications Active Medications SIG Qnty Indications Ordering Date Provider Doxycycline Hyclate one tab twice daily 14tabs Deb 01/20/2020 by mouth Karnow, DO 100mg Tablets Bupropion 1 by mouth every 90tabs Deb 09/28/2019 Hydrochloride ER day Karnow, DO (XL) 300mg Tablets ER 24HR Benzonatate take one capsule by 30caps Deb 09/10/2019 100mg mouth three times a Karnow, DO Capsules day as needed Valacyclovir HCL oral; take one 90tabs Deb 05/10/2019 tablet by mouth Karnow, DO 500mg Tablets every day for suppressive therapy Hydrocodone-Acetamin oral; take one 60tabs Deb 01/25/2019 ophen tablet by mouth Karnow, DO 7.5-325mg every 12 hours as Tablets needed; maximum daily dose = 2 Losartan oral; take one 90tabs Deb 11/07/2018 Potassium/Hydrochlor tablet by mouth Karnow, DO othiazide every day 100-25mg Tablets Atorvastatin Calcium oral; take one 90tabs Deb 10/19/2018 tablet bymouth Karnow, DO 10mg Tablets every day Ventolin HFA Inhalation; Inhale 18units Unknown 05/04/2018 2 Puffs By Mouth 108(90Base) mcg/Act Every 6 Hours as Aerosol Needed Albuterol Sulfate Inhalation; Inhale 75units Unknown 10/25/2017 The Contents Of 1 (2.5mg/3ML) 0.083% Vial Via Nebulizer Nebulizer Every 4 Hours as Needed For Shortness Of Breath Montelukast Sodium Oral; Take One 30tabs Unknown 08/18/2017 Tablet By Mouth 10mg Tablets Every Day Prozac 2 daily Oral; 1caps Unknown 08/22/2016 40mg Capsules takes 80mg once daily Amlodipine Besylate oral; take 1.5 90tabs Deb 06/07/2015 tablet by mouth Karnow, DO 5mg Tablets every day Epipen 2-Walter prn Injection; 1units Unknown 05/10/2015 inject .3 ml im for 0.3mg/0.3ML Solution anaphylactic Auto-Inject reaction. Folic Acid Oral Unknown 10/23/2009 400mcg Tablets Aspirin Adult 1 po daily (not Unknown 325mg currently taking Tablets since rotator cuff surgery) Pepcid prn Unknown 20mg Tablets Benadryl Allergy prn Unknown 25mg Capsules Vitamin D3 daily Unknown 2000Unit Capsules Vitamin D3 daily Unknown 50mcg (2000 Ut) Capsules Breo Ellipta 1 puff daily Unknown 200-25mcg/Inh Aerosol History Medications Doxycycline Hyclate one tab twice 14tabs Deb Karnow, 11/19/2019 - 100mg daily by mouth DO 11/25/2019 Tablets Immunizations CPT Code Status Date Vaccine Lot # [id number] Given 09/28/2019 Flu High Dose [id number] Given 09/16/2018 Flu High Dose 25902 Given 12/24/2017 Typhoid Vaccine Vicps Intramuscular 21881 Given 07/16/2017 Flu High Dose 31595 Given 04/15/2017 Pneumovax - for >=2years - PPSV23 90352 Given 09/13/2015 Tdap - Boostrix/Adacel 01345 Given 10/17/2014 Polio - Ipol 99944 Given 09/21/2014 Prevnar 13 29160 Given 10/15/2011 Pneumovax - for >=2years - PPSV23 44773 Given 07/28/1997 Pneumovax - for >=2years - PPSV23 Vital Signs Date Vital Result Comment 11/19/2019 2:51pm BP Systolic 142 mmHg BP Diastolic 82 mmHg Weight 193.00 lb Heart Rate 85 /min Body Temperature 97.4 F O2 % BldC Oximetry 98 % 09/28/2019 1:16pm BP Systolic 140 mmHg BP Diastolic 80 mmHg Weight 189.00 lb Heart Rate 87 /min Body Temperature 98.5 F O2 % BldC Oximetry 97 % Results Test Acquired Facility Test Result H/L Range Note Date Laboratory 01/18/2020 [facility] Covid19, PCR Undetected Undetected 1 test finding [address] [place] [address] [phone] CFM Urine 11/19/2019 [facility] Urine, 30mg/L Microalbumin/C ( )- - Microalbumin reat R Urine, Creatinine, Random 50MG/dL Microalb/CR Ratio 30-300mg/g-abno Drug Screen 11/11/2019 [facility] Urine None Detected None Detect Urine Pain [address] [place] [address] Screen [phone] Urine Oxycodone Screen None Detected None Detect Urine Fentanyl Screen None Detected None Detect Urine Methadone Screen None Detected None Detect Urine Buprenorphine Screen None Detected None Detect Urine Amphetamine Screen Presumptive Posi <SEE NOTE> Abnormal None Detect 2 Urine Barbiturates Screen None Detected None Detect Urine Benzodiazepine Screen Presumptive Posi <SEE NOTE> Abnormal None Detect 3 Urine Cannabinoids Screen None Detected None Detect Urine Cocaine Screen None Detected None Detect Urine Opiates Screen Presumptive Posi <SEE NOTE> Abnormal None Detect 4 Urine Phencyclidine Screen None Detected None Detect 5 1 SARS-CoV-2 RNA is not detected. ADDITIONAL INFORMATION Testing was performed using the alan SARS-CoV-2 assay ([employer] on the alan [employer] System. Fact sheets for this Emergency Use Authorization (EUA) assay can be found at the following links: For Healthcare Providers: https://www.[employer].gov/Luminescent/752373/download For Patients: https://www.[employer].gov/media/145601/download Test Performed by: [place] [address] [employer] Mix[employer] Machine: José Miguel Moreau M.D. Ph.D.; CLIA# [id number] 2 Presumptive Positive Presumptive positive results are unconfirmed. 3 Presumptive Positive Presumptive positive results are unconfirmed. 4 Presumptive Positive Presumptive positive results are unconfirmed. 5 The specimen was tested at the listed cutoffs: Drug Class Test level (ng/mL) Hydrocodone 300 Oxycodone 100 Fentanyl 1 Methadone 150 Buprenorphine 5 Amphetamines 500 Barbiturates 200 Benzodiazepines 200 Cocaine 150 Cannabinoids 50 Opiates 300 PCP 25 Specimen was received without chain of custody. Results should be used for medical purposes only. Procedures Description No Information Available Medical Devices Description No Information Available Encounters Type Date Location Provider Dx Diagnosis Office Visit 01/20/2020 [facility] Deb De La Rosa, DO J01.90 Acute sinusitis, 2:30p unspecified R05 Cough I10 Essential (primary) hypertension Office Visit 11/19/2019 1:15p [facility] Deb De La Rosa, J01.90 Acute sinusitis, DO unspecified I10 Essential (primary) hypertension Office Visit 09/28/2019 1:15p [facility] Deb Clairew, Z23 Encounter for DO immunization I10 Essential (primary) hypertension J45.998 Other asthma G89.29 Other chronic pain R23.8 Other skin changes E78.2 Mixed hyperlipidemia Z23 Encounter for immunization Assessments Date Code Description Provider 01/20/2020 J01.90 Acute sinusitis, unspecified Deb Karnow, DO 01/20/2020 R05 Cough Deb Rolynow, DO 01/20/2020 I10 Essential (primary) hypertension Deb Rolynow, DO 11/19/2019 J01.90 Acute sinusitis, unspecified Deb Rolynow, DO 11/19/2019 I10 Essential (primary) hypertension Deb Rolynow, DO 09/28/2019 Z23 Encounter for immunization Deb Rolynow, DO 09/28/2019 I10 Essential (primary) hypertension Deb Rolynow, DO 09/28/2019 J45.998 Other asthma Edb Rolynow, DO 09/28/2019 G89.29 Other chronic pain Deb Rolynow, DO 09/28/2019 R23.8 Other skin changes Deb Rolynow, DO 09/28/2019 E78.2 Mixed hyperlipidemia Deb Karnow, DO 09/28/2019 Z23 Encounter for immunization Deb Dakotahw, DO Plan of Treatment 01/20/2020 - Deb Clairew, DOJ01.90 Acute sinusitis, unspecifiedComments: Tenderness with percussion that patient did on video screenWill treat with Doxycycline as would alsocover a possible [id number] CoughComments:Often gets cough when unwell due to her asthmaShe is using her rescue inhaler and that is helpful Can use Tessloasha perls prn as well Discussed when to worry and when to be seen right away Her covid testwas negativeSmall possibility of false negativeEncouraged continued self isolationDiscussed when to worry and when to go to ERI10 Essential (primary) hypertensionComments:Has not been well controlled Cardio visit got cancelled due to COVID - not seeing them until next month Will have her increase her Amlodipine to 7.5mg daily and if BPs remain elevated after two week, then increase all the way to 10mg dailyContinue the Losartan-HCTZ3 month follow upAllNew Medication:Doxycycline Hyclate 100 mg - one tab twice daily by mouthComments:Given patient's high risk for serious complications from COVID, the above services were appropriate to provide in a Telemedicine setting. Patient was given appropriate cautions of when to be seen in person Functional Status Description No Information Available Mental Status Description No Information Available Referrals Description No Information Available
--- OUTSIDE RECORDS SUMMARY | 2020-01-29 12:28 | XMS REPORT | Continuity of Care Document ---
:1950 External Reference #:[id number] Author Problems Active Problems Provider Date Lyme disease [...] Patient has never smoked Smoking Status Reviewed: 11/19/19 Patient has never smoked Allergies, Adverse Reactions, [...] Hyclate one tab twice daily 14tabs Deb 11/19/2019 by mouth Karnow, DO 100mg Tablets Bupropion 1 by mouth every 90tabs Deb 09/28/2019 Hydrochloride ER day Karnow, DO (XL) 300mg Tablets ER 24HR Benzonatate Take One Capsule By amos Laird MD 09/10/2019 100mg Mouth Three Times A Capsules Day as Needed Valacyclovir HCL oral; take one 90tabs Deb [...] Capsules takes 80mg once daily Amlodipine Besylate Oral; Take One 30tabs Unknown 06/07/2015 Tablet By Mouth 5mg Tablets Every Day Epipen 2-Walter prn Injection; 1units Unknown 05/10/2015 inject .3 ml im for 0.3mg/0.3ML Solution anaphylactic Auto-Inject reaction. Folic Acid Oral Unknown 10/23/2009 400mcg Tablets Aspirin Adult 1 po daily (not Unknown 325mg currently taking Tablets since rotator cuff surgery) Pepcid prn Unknown 20mg Tablets Benadryl Allergy prn Unknown 25mg Capsules Vitamin D3 daily Unknown 2000Unit Capsules Vitamin D3 daily Unknown 50mcg (1999 Ut) Capsules Breo Ellipta 1 puff daily Unknown 200-25mcg/Inh Aerosol Immunizations CPT Code Status Date Vaccine Lot # [id number] Given 09/28/2019 Flu High Dose [id number] 45124 Given 09/16/2018 Flu High Dose 99048 Given 12/24/2017 Typhoid Vaccine Vicps Intramuscular 80625 Given 07/16/2017 Flu High Dose 31929 Given 04/15/2017 Pneumovax - for >=2years - PPSV23 35438 Given 09/13/2015 Tdap - Boostrix/Adacel 70619 Given 10/17/2014 Polio - Ipol 85842 Given 09/21/2014 Prevnar 13 98661 Given 10/15/2011 Pneumovax - for >=2years - PPSV23 28284 Given 07/28/1997 Pneumovax - for >=2years - [...] Result H/L Range Note Date Laboratory 01/18/2020 [facility] Covid19, PCR Undetected Undetected 1 test finding [address] [place] [address] [phone] CFM Urine 11/19/2019 [facility] Urine, 30mg/L Microalbumin/C ( )- - Microalbumin reat R Urine, Creatinine, Random 50MG/dL Microalb/CR Ratio 30-300mg/g-abno Drug Screen 11/11/2019 [facility] Urine None Detected None Detect Urine Pain [address] [place] [address] Screen [phone] Urine Oxycodone Screen None Detected None Detect [...] was performed using the alan SARS-CoV-2 assay ([employer] on the alan 6800 System. Fact sheets for this Emergency Use Authorization (EUA) assay can be found at the following links: For Healthcare Providers: https://www.[employer].gov/media/349088/download For Patients: https://www.[employer].gov/media/070579/download Test Performed by: [facility] [address] [place] [address] Risk Mgr: José Miguel Moreau M.D. Ph.D.; CLIA# [id number] 2 Presumptive Positive Presumptive positive results are [...] Date Location Provider Dx Diagnosis Office Visit 11/19/2019 TANA De La Rosa DO J01.90 Acute sinusitis, 1:15p unspecified I10 Essential (primary) hypertension Office Visit 09/28/2019 1:15p [facility] Richard De La Rosa Z23 Encounter for DO immunization I10 Essential (primary) hypertension J45.998 Other asthma G89.29 Other chronic pain R23.8 Other skin changes E78.2 Mixed hyperlipidemia Z23 Encounter for immunization Assessments Date Code Description Provider 11/19/2019 J01.90 Acute sinusitis, unspecified Deb De La Rosa, DO 11/19/2019 I10 Essential (primary) hypertension Deb De La Rosa, DO 09/28/2019 Z23 Encounter for immunization Deb De La Rosa, DO 09/28/2019 I10 Essential (primary) hypertension Deb De La Rosa, DO 09/28/2019 J45.998 Other asthma Deb De La Rosa, DO 09/28/2019 G89.29 Other chronic pain Deb De La Rosa, DO 09/28/2019 R23.8 Other skin changes Deb De La Rosa, DO 09/28/2019 E78.2 Mixed hyperlipidemia Deb De La Rosa, DO 09/28/2019 Z23 Encounter for immunization Deb De La Rosa, DO Plan of Treatment Future Appointment(s):01/24/2020 11:00 am - Ayesha Patton MD at [facility] Main2019 - Deb De La Rosa, DOJ01.90 Acute sinusitis, unspecifiedComments:Symptoms for last one month, not getting better and facial pressure and fullness getting worseDiscussed reasonable to suspect bacterial sinusitis at this point and treat with abxShe does not tolerate Augmentin well and usually takes doxy for this - rx faxedDiscussed supportive care measures as wellI10 Essential (primary ) hypertensionComments:Urine microalbumin positiveDiscussed we really need a visit to focus on her other chronic medical conditions and to figure out how we are going to get blood pressure under better control She will make a follow up visitAllNew Medication:Doxycycline Hyclate 100 mg - one tab twice daily by mouth Functional Status Description No Information Available Mental Status Description No Information Available Referrals Description No Information Available
--- OUTSIDE RECORDS SUMMARY | 2020-01-29 12:28 | XMS REPORT | Continuity of Care Document ---
:1950 External Reference #:[id number] Author Name Deb De La Rosa DO (transmitted by agent of provider Julienne Bright) Address [address] [place] [id number] Problems Active Problems Provider Date Lyme disease [...] once daily Amlodipine Besylate oral; take 1.5 30tabs Deb 06/07/2015 tablet by mouth Karnow, DO [...] CPT Code Status Date Vaccine Lot # [id number] Given 09/28/2019 Flu High Dose [id number] Given 09/16/2018 Flu High Dose 67915 Given 12/24/2017 Typhoid Vaccine Vicps Intramuscular 64781 Given 07/16/2017 Flu High Dose 71972 Given 04/15/2017 Pneumovax - for >=2years - PPSV23 75544 Given 09/13/2015 Tdap - Boostrix/Adacel 58176 Given 10/17/2014 Polio - Ipol 50821 Given 09/21/2014 Prevnar 13 21767 Given 10/15/2011 Pneumovax - for >=2years - PPSV23 43777 Given 07/28/1997 Pneumovax - for >=2years - [...] Result H/L Range Note Date Laboratory 01/18/2020 [facility] Covid19, PCR Undetected Undetected 1 test finding [address] [place] [address] [phone] CFM Urine 11/19/2019 [facility] Urine, 30mg/L Microalbumin/C ( )- - Microalbumin reat R Urine, Creatinine, Random 50MG/dL Microalb/CR Ratio 30-300mg/g-abno Drug Screen 11/11/2019 [facility] Urine None Detected None Detect Urine Pain [address] [place] [address] Screen [phone] Urine Oxycodone Screen None Detected None Detect [...] was performed using the alan SARS-CoV-2 assay ([employer] on the alan [employer] System. Fact sheets for this Emergency Use Authorization (EUA) assay can be found at the following links: For Healthcare Providers: https://www.[place].gov/[employer]/128221/download For Patients: https://www.[place].gov/media/450886/download Test Performed by: [place] [address] Pierogi Maker: José Miguel Moreau M.D. Ph.D.; CLIA# [id number] 2 Presumptive Positive Presumptive positive results are [...] Location Provider Dx Diagnosis Office Visit 01/20/2020 [facility] Main Deb Clairew, DO J01.90 Acute sinusitis, 2:30p unspecified R05 Cough I10 Essential (primary) hypertension Office Visit 11/19/2019 1:15p M Main Deb Clairew, J01.90 Acute sinusitis, DO unspecified I10 Essential (primary) hypertension Office Visit 09/28/2019 1:15p [facility] Main Dbe Dunhamnow, Z23 Encounter for DO immunization I10 Essential (primary) hypertension J45.998 Other asthma G89.29 Other chronic pain R23.8 Other skin changes E78.2 Mixed hyperlipidemia Z23 Encounter for immunization Assessments Date Code Description Provider 01/20/2020 J01.90 Acute sinusitis, unspecified Deb Rolynow, DO 01/20/2020 R05 Cough Deb Rolynow, DO 01/20/2020 I10 Essential (primary) hypertension Deb Rolynow, DO 11/19/2019 J01.90 Acute sinusitis, unspecified Deb Karnow, DO 11/19/2019 I10 Essential (primary) hypertension Deb Karnow, DO 09/28/2019 Z23 Encounter for immunization Deb Karnow, DO 09/28/2019 I10 Essential (primary) hypertension Deb Karnow, DO 09/28/2019 J45.998 Other asthma Deb Karnow, DO 09/28/2019 G89.29 Other chronic pain Deb Karnow, DO 09/28/2019 R23.8 Other skin changes Deb Karnow, DO 09/28/2019 E78.2 Mixed hyperlipidemia Deb Karnow, DO 09/28/2019 Z23 Encounter for immunization Deb Rolynow, DO Plan of Treatment Future Appointment(s):01/24/2020 11:30 am - Deb Rolyesther, DO at [facility]11/2019 - Deb Karnow, DOJ01.90 Acute sinusitis, unspecifiedComments: Tenderness with percussion that patient did on video screenWill treat with Doxycycline as would alsocover a possible [id number] CoughComments:Often gets cough when unwell due to her asthmaShe is using her rescue inhaler and that is helpful Can use Sin davey prn as well Discussed when to worry [...]
[2020-01-29 13:25] VITALS: BP 147/79
--- NOTE | 2020-01-29 13:26 | UC ---
Respiratory Complaint HPI - HPI Summary HPI Summary: PATIENT COMES IN WITH ABOUT 2 WEEKS OF RESPIRATORY SYMPTOMS. TESTED NEGATIVE FOR COVID19 ON 01/18/2020. WAS PLACED ON 7 DAYS OF DOXYCYCLINE BY HER PCP AND STATES THAT OVERALL HER SYMPTOMS ARE IMPROVING BUT SHE FEELS AN EXTRA 3 DAYS OF DOXYCYCLINE WOULD BE BENEFICIAL. SHE CALLED HER PCP WHO SENT THE MEDICINE INTO HER PHARMACY ALREADY BUT RECOMMENDED SHE COME HERE TO HAVE HER LUNGS LISTENED TO. PATIENT REPORTS RESOLUTION OF HER SHORTNESS OF BREATH AND SORE THROAT BUT HAS PERSISTENT COUGH AND SINUS CONGESTION. THERMOMETER AT HOME READING 99- 100.8 INTERMITTENTLY. STATES SHE NORMALLY GETS A COURSE OF PREDNISONE FOR BRONCHITIS BUT THAT DUE TO THE CONCERN FOR COVID19 SHE WAS NOT GIVEN PREDNISONE THIS TIME AROUND. - History of Current Complaint Chief Complaint: UCRespiratory Stated Complaint: CONGESTION COUGH SINUS ISSUE Time Seen by Provider: 01/29/20 12:35 Hx Obtained From: Patient Onset/Duration: Gradual Onset, Lasting Days, Still Present Timing: Constant Severity Initially: Moderate Severity Currently: Mild Pain Intensity: 0 Pain Scale Used: 0-10 Numeric Character: Cough: Nonproductive Aggravating Factors: Nothing Alleviating Factors: Bronchodilator Associated Signs And Symptoms: Positive: URI, Nasal Congestion, Sinus Discomfort. Negative: Dyspnea, Wheezing - Allergies/Home Medications Allergies/Adverse Reactions: Allergies Allergy/AdvReac Type Severity Reaction Status Date / Time erythromycin base Allergy Rash Verified 01/29/20 12:30 mold Allergy Shortness Verified 01/29/20 12:30 of Breath pollen extracts Allergy Shortness Verified 01/29/20 12:30 of Breath soy Allergy GI Upset Verified 01/29/20 12:30 sulfamethoxazole Allergy Hives Verified 01/29/20 12:30 [From Bactrim] tree and shrub pollen Allergy Shortness Verified 01/29/20 12:30 of Breath trimethoprim [From Bactrim] Allergy Hives Verified 01/29/20 12:30 cats Allergy Difficulty Uncoded 01/29/20 12:30 Breathing Home Medications: Home Medications Aspirin TAB* [Aspirin 325 MG TAB*] 325 mg PO EVERY OTHER DAY 08/08/13 [History Confirmed 01/29/20] Atorvastatin* [Lipitor 10 MG*] 10 mg PO 1700 08/08/13 [History Confirmed ] Cholecalciferol TAB* [Vitamin D TAB*] 2,000 units PO QAM 08/08/13 [History Confirmed 01/29/20] buPROPion SR TAB* [Wellbutrin SR TAB*] 300 mg PO QAM 08/08/13 [History Confirmed 01/29/20] Losartan/HCTZ 100/25 (NF) [Hyzaar 100/25 (NF)] 1 tab PO QPM 05/16/15 [History Confirmed 01/29/20] amLODIPine TAB* [Norvasc 5 mg TAB*] 7.5 mg PO QPM 05/16/15 [History Confirmed ] Albuterol HFA INHALER* [Ventolin HFA Inhaler*] 2 puff INH QID PRN 01/27/17 [ History Confirmed 01/29/20] Fluoxetine HCl [Prozac] 80 mg PO QAM 07/10/18 [History Confirmed 01/29/20] Montelukast Sodium TAB* [Singulair 10 MG TAB*] 10 mg PO QPM 07/10/18 [History Confirmed 01/29/20] Albuterol 2.5MG/3ML (0.083%)* [Ventolin 2.5 MG/3 ML NEB.LETTY*] 2.5 mg INH RT.Q4HR -WHILE AWAKE PRN neb.soln 07/11/18 [Rx Confirmed 01/29/20] diPHENhydraMINE PO* [Benadryl PO 25 MG TAB*] 25 mg PO Q4H PRN tab 07/11/18 [Rx Confirmed 01/29/20] ValACYclovir (*) [Valtrex 500 mg (*)] 500 mg PO QAM 04/24/19 [History Confirmed 01/29/20] ALPRAZolam TAB* [Xanax TAB*] 0.5 mg PO TID PRN 04/28/19 [History Confirmed 01/28] Famotidine [Pepcid AC] 20 mg PO ONCE PRN 04/28/19 [History Confirmed 01/29/20] Fluticasone/Vilanterol [Breo Ellipta 200-25 Mcg INH] 1 inh INH QAM 04/28/19 [ History Confirmed 01/29/20] Folic Acid 0.4 mg PO QAM 04/28/19 [History Confirmed 01/29/20] Oxycodone HCl 5 mg PO TID PRN MDD 3 tabs 04/28/19 [History Confirmed 01/29/20] predniSONE 20 mg TAB [Deltasone 20 MG TAB*] 40 mg PO DAILY #10 tab 01/29/20 [Rx] PMH/Surg Hx/FS Hx/Imm Hx Cardiovascular History: Hypertension Respiratory History: Asthma - Surgical History Surgical History: Yes Surgery Procedure, Year, and Place: HYSTERECTOMY. right hand surgery after dog bite - [facility]- 10 years ago. CATARACTS BILATERAL EYES. C-SECTIONS. rotator cuff left shoulder - Family History Known Family History: Positive: Cardiac Disease, Hypertension - Social History Alcohol Use: Occasionally Alcohol Amount: Three times per week Substance Use Type: None Smoking Status (MU): Never Smoked Tobacco Have You Smoked in the Last Year: No - Immunization History Most Recent Influenza Vaccination: saeson Most Recent Tetanus Shot: February 18, 2016 Most Recent Pneumonia Vaccination: 07/05/16 Review of Systems All Other Systems Reviewed And Are Negative: Yes Constitutional: Positive: Fever, Fatigue ENT: Positive: Nasal Discharge, Sinus Congestion Respiratory: Positive: Cough. Negative: Shortness Of Breath Cardiovascular: Positive: Negative Gastrointestinal: Positive: Negative Musculoskeletal: Positive: Myalgia Physical Exam Triage Information Reviewed: Yes Appearance: Well-Appearing, No Pain Distress, Well-Nourished Vital Signs: Vital Signs (72 hours) 01/29/20 13:25 Temperature 98.5 F Pulse Rate 75 Respiratory 14 Rate Blood Pressure 147/79 (mmHg) O2 Sat by Pulse 96 Oximetry Laboratory Tests 01/29/20 13:23 Influenza A (Rapid) Negative Influenza B (Rapid) Negative Vital Signs Reviewed: Yes Eyes: Positive: Conjunctiva Clear ENT: Positive: Hearing grossly normal Neck: Positive: Supple Respiratory Exam: Normal Cardiovascular Exam: Normal Abdomen Description: Positive: Soft Musculoskeletal: Positive: No Edema Neurological: Positive: Alert Psychological: Positive: Age Appropriate Behavior Skin: Negative: Rashes Respiratory Course/Dx - Course Course Of Treatment: FLU NEGATIVE. GIVEN PERSISTENT ALBEIT IMPROVING RESPIRATORY SYMPTOMS, REPEAT TESTING FOR COVID19 DONE TODAY. PATIENT BEING DISCHARGED HOME TO SELF- ISOLATION AND WILL BE CONTACTED BY HD WITH RESULTS. CONTACT/DROPLET PRECAUTIONS TAKEN BY MYSELF DURING ENCOUNTER. I COLLECTED BOTH VITAL SIGNS AND SWABS. LUNGS CLEAR ON EXAM. PT DECLINES CXR TODAY WHICH I THINK IS REASONABLE. PATIENT ALREADY HAS AN EXTENDED COURSE OF DOXYCYCLINE CALLED INTO HER PHARMACY BY HER PCP. I WILL ADD A SHORT BURST OF PREDNISONE PATIENT STATES THIS NORMALLY HELPS HER GET OVER HER SYMPTOMS. SHE IS TO CONTINUE USING HER INHALER PRESCRIBED. GIVEN POSSIBILITY OF COVID-19 DISCUSSED HOLDING OFF ON PREDNISONE FOR NOW SHE MAY DO WELL WITH THE EXTRA DOXYCYCLINE ALONE. TO THE ER WITHOUT FAIL IF SX WORSEN. - Differential Dx/Diagnosis Provider Diagnosis: Acute bronchitis Discharge ED - Sign-Out/Discharge Documenting (check all that apply): Patient Departure All imaging exams completed and their final reports reviewed: No Studies - Discharge Plan Condition: Stable Disposition: HOME Prescriptions: predniSONE 20 mg TAB [Deltasone 20 MG TAB*] 40 mg PO DAILY #10 tab Patient Education Materials: Acute Bronchitis (ED) Forms: COVID-19 Tested & Isolation Referrals: Deb De La Rosa DO [Primary Care Provider] - If Needed Additional Instructions: FLU NEGATIVE. YOUR LUNGS ARE CLEAR AND YOUR VITAL SIGNS ARE ALL NORMAL. GIVEN YOUR PERSISTENT RESPIRATORY SYMPTOMS REPEAT TESTING FOR COVID-19 COMPLETED TODAY. YOU SHOULD EXPECT RESULTS IN 3-7 DAYS. YOU ARE BEING DISCHARGED TO SELF- ISOLATION AT HOME. GET REST AND STAY WELL HYDRATED. THE HEALTH DEPARTMENT WILL BE FOLLOWING UP WITH YOU. OKAY TO TAKE THE EXTENDED COURSE OF DOXY PER YOUR PCP. IF YOU ARE NOT CONTINUING TO IMPROVE GO AHEAD AND TAKE THE PREDNISONE. USE YOUR INHALER PRESCRIBED. CALL 911 IF YOU DEVELOP WORSENING RESPIRATORY DISTRESS, FEVER, PAIN OR ANY OTHER CONCERNING SYMPTOMS. - Billing Disposition and Condition Condition: STABLE Disposition: Home
[2020-01-29 13:35] LABS: Influenza A Molecular Negative (Negative); Influenza B Molecular Negative (Negative)
== END 2020-01-29 13:45 | disposition home or self-care (01) ==
LOC: UCEAST 12:19
DX: J20.9 Acute bronchitis, unspecified (principal); Z20.828 Contact with and (suspected) exposure to other viral communicable diseases; I10 Essential (primary) hypertension; J45.909 Unspecified asthma, uncomplicated; Z79.82 Long term (current) use of aspirin; Z79.899 Other long term (current) drug therapy; Z88.1 Allergy status to other antibiotic agents; Z88.2 Allergy status to sulfonamides; Z91.09 Other allergy status, other than to drugs and biological substances
CPT/HCPCS: 87635; 99212; G0463; G2023